=== PATIENT | female | born 1950 | race Caucasian/White ===

== ENCOUNTER → 2017-04-06 | Outpatient (CLI) | payer OTHER ==
[~2017-04-06] MED LIST: ASPI325T39 PO; CHOL1000 PO; METO50TA7 PO; MULT-506 PO; SULF500T36 PO
--- NOTE | 2017-04-06 15:37 | MAMMOGRAPHY REPORT ---
BILATERAL DIGITAL SCREENING MAMMOGRAM WITH CAD: 04/06/2017 CLINICAL HISTORY: Routine screening. Patient has no complaints. TECHNIQUE: Current study was also evaluated with a Computer Aided Detection (CAD) system. Bilateral CC and MLO views were obtained. COMPARISON: Comparison is made to exams dated: 03/30/2015 mammogram, 04/04/2016 mammogram, 4 mammogram, 03/18/2013 mammogram, 03/15/2012 mammogram, and 03/14/2011 mammogram - [facility]. BREAST COMPOSITION: The tissue of both breasts is heterogeneously dense, which may obscure small mas ses. FINDINGS: No suspicious masses, calcifications, or areas of architectural distortion are noted in ei ther breast. There has been no significant interval change compared to prior exams. Bilateral benign -appearing calcifications are not significantly changed. A biopsy marker clip is again seen within t he right upper outer quadrant. IMPRESSION: ACR BI-RADS CATEGORY 2: BENIGN There is no mammographic evidence of malignancy. A 1 year screening mammogram is recommended. The pa tient will receive written notification of the results. Approximately 10% of breast cancers are not detected with mammography. A negative mammographic report should not delay biopsy if a clinically suggestive mass is present. Maricel Pagan M.D. /:04/06/2017 07:38:57 Electronics Tech: Catrina SCHAEFFER(Joshua)(M), [facility] letter sent: Normal 1/2 BI-RADS Code: ACR BI-RADS Category 2: Benign
== END | disposition home or self-care (01) ==
LOC: C.MAMM 07:12
PROVIDERS: ATTEND Obstetrics & Gynecology
DX: Z12.31 Encounter for screening mammogram for malignant neoplasm of breast (principal)

== ENCOUNTER 2017-05-07 08:54 | Inpatient (IN) | payer OTHER ==
[~2017-05-07] VITALS: Ht 165.1 cm; Wt 70.5 kg
[2017-05-07] VITALS (8 sets, daily range): BP systolic 117–145; BP diastolic 70–102; PULSE 79–93; TEMP 37–37.3; O2SAT 97–100; Ht 165.1 cm; Wt 70.5 kg
[~2017-05-07 08:54] MED LIST changes: +CEFAZOLIN SOD 2000MG/10 ML IV PUSH IV SCH
[2017-05-07] MEDS ORDERED: ONDANSETRON INJ 2 MG/ML 2 ML VIAL IV STA (09:42)
[2017-05-07] MEDS ORDERED: SODIUM CHLORIDE 0.9% 500ML 500 ML IV STA (09:42)
[2017-05-07 09:44] LABS: BASO % 0.1 %; BASO ABS # 0.01 K/uL (0-0.2); COMPLETE YES; EOS % 0.1 %; HEMATOCRIT 34.1 % (37-47); IG% 0.4 %; LYMPH % 3.7 %; MEAN CELL VOLUME 83.8 fL (80-100); MEAN CORPUSCULAR HEMOGLOBIN 26.3 pg (25-34); MEAN CORPUSCULAR HGB CONC 31.4 g/dl (32-36); MEAN PLATELET VOLUME 8.5 fL (7.4-10.4); MONO % 2.4 %; NEUT % 93.3 %; PLATELET COUNT 473 K/uL (130-400); RED BLOOD COUNT 4.07 M/uL (4.2-5.4); WHITE BLOOD COUNT 13.66 K/uL (4.8-10.8)
[2017-05-07 10:09] LABS: ALT/SGPT 20 U/L (12-78); AST/SGOT 14 U/L (15-37); BLOOD UREA NITROGEN 13 mg/dl (7-18); BUN/CREATININE RATIO 14.3 (10-20); CALCIUM 8.7 mg/dl (8.5-10.1); CARBON DIOXIDE 27 mmol/L (21-32); CHLORIDE 99 mmol/L (98-107); CREATININE 0.92 mg/dl (0.60-1.20); GLUCOSE 166 mg/dl (70-99); POTASSIUM 3.8 mmol/L (3.5-5.1); SODIUM 131 mmol/L (136-145)
[2017-05-07 10:11] LABS: ALKALINE PHOSPHATASE 89 U/L (45-117)
[2017-05-07] MEDS ORDERED: AZAT50TA17 PO (10:42)
[2017-05-07] MEDS ORDERED: PRED10TA PO (10:42)
[2017-05-07] MEDS ORDERED: OPTIRAY 320 IV PRN (11:15)
[2017-05-07] MEDS ORDERED: PIPERACILLIN/TAZOBACTAM 4.5 GM/100ML D5W IV STA (11:16)
[2017-05-07] MEDS ORDERED: SODIUM CHLORIDE 0.9% 1000ML 1,000 ML IV STA (11:17)
--- NOTE | 2017-05-07 11:17 | DIAGNOSTIC IMAGING REPORT ---
CT ABD/PELVIS IV CONTRAST ONLY CLINICAL HISTORY: Diffuse abdominal pain COMPARISON STUDY: 07/13/2015 TECHNIQUE: Following the IV administration of 93 mL of Optiray-320, CT scan of the abdomen and pelvis was performed from the lung bases to the proximal femurs. Images are reviewed in the axial, sagittal, and coronal planes. IV contrast was administered without complication. A dose lowering technique was utilized adhering to the principles of ALARA. CT DOSE: 327.98 mGy.cm FINDINGS: Lower chest: There are bibasal atelectatic changes Liver: The contrast-enhanced liver is normal in size, contour, and attenuation. There is no intrahepatic biliary ductal dilatation. The hepatic veins and portal veins are patent. Gallbladder: Unremarkable. Spleen: Normal in size and attenuation. Pancreas: Unremarkable. Adrenal glands: Unremarkable. Kidneys: There is symmetric renal cortical enhancement. The kidneys are normal in size without hydronephrosis. Bowel: There is moderate to marked colonic wall thickening involving the descending colon and sigmoid. There is infiltration of the abdomen descending sigmoid junction. There are extraluminal gas bubbles present. There is an extraluminal gas and fluid collection consistent with abscess. There is evidence for free intraperitoneal air. There is minimal free fluid within the pelvis. There are additional areas of colonic wall thickening. There is also bowel wall thickening involving the terminal ileum.. There is mild small bowel dilatation with air-fluid levels, likely secondary to an ileus. There is no evidence of acute appendicitis. Peritoneum: There is minimal free fluid. There is free intraperitoneal air. Vasculature: The abdominal aorta is normal in course and caliber. Adenopathy: None. Pelvic viscera: There are small bilateral ovarian cysts/follicles. Skeletal structures: No destructive osseous lesions are seen. IMPRESSION: 1. CT evidence of a perforated viscus with free intraperitoneal air and small amounts of free intraperitoneal fluid 2. The site of perforation is likely in the region of the sigmoid, descending colonic junction. There is marked infiltration the pericolonic fat at this level, and there were small extraluminal gas and fluid collections consistent with pericolonic abscesses. These measure up to 2.5 cm in diameter. 3. Additional areas of colonic wall thickening as well as thickening of the terminal ileum. These could be secondary to the patient's reported Crohn's disease or be secondary to peritonitis. 4. Surgical consultation is recommended. 5. The scan findings were discussed with Dr. Fletcher in the emergency room Electronically signed by: Rick Alvarez M.D. 05/07/2017 11:16 AM Dictated Date/Time: 05/07/2017 11:05 AM
--- NOTE | 2017-05-07 12:40 | History and Physical ---
History & Physical Date & Time of Service: May 07, 2017 at 12:29 Chief Complaint: Stomach Pains Primary Care Physician: Stuart Plaza M.D. History of Present Illness Source: patient Mónica is a pleasant 66 year-old female who presented to the emergency room this morning with complaint of increasing abdominal pain. She has had moderate abdominal pain mostly in the left abdomen for the past 2-3 weeks and noticed the pain increasing in nature and radiating to the right side last evening. Mónica has history of Crohn's disease in which she is currently on Remicade. Treated by Dr. Mclain, GI with [facility]. She just had a colonoscopy about 2-3 weeks ago which was unremarkable other than her Crohn's disease. States she had the colonoscopy to evaluate if her Crohn's was improving while on the medication. Denies of any changes in her diet recently. Denies fever, chills, nausea, vomiting, diarrhea, constipation, or blood in stools. Labs showed leukocytosis of 13.66K CT of abdomen and pelvis with IV contrast showed perforated viscus with free intraperitoneal air and small amounts of free intraperitoneal fluid. Perforation most likely at the level of the sigmoid descending colon junction with some extraluminal gas and fluid suggesting abscess measuring up to 2.5 cm. She was tachycardic in the emergency department with heart rate in the 120's Past Medical/Surgical History Medical Problems: (1) Abdominal pain (2) Bloody diarrhea (3) Crohn's disease Past Surgical History: No past surgical history other than Endoscopy Social History Smoking Status: Former Smoker Drug Use: none Marital Status: Multi-Drug Resistant Organisms History of MDRO: No Allergies Coded Allergies: No Known Allergies (Unverified , 05/07/17) Home Medications Scheduled Aspirin (Aspirin Ec), 325 MG PO DAILY Azathioprine (Imuran), 50 MG PO DAILY Cholecalciferol (Vitamin D3), 1 TAB PO DAILY Metoprolol Succ (Toprol Xl) (Toprol-Xl), 50 MG PO DAILY Multivitamin (Multivitamin), 1 TAB PO DAILY Prednisone Tab (Prednisone), 10 MG PO DAILY Review of Systems Constitutional: No fever, No chills, No sweats Respiratory: No cough, No shortness of breath Cardiovascular: No chest pain Abdomen: + pain, No nausea, No vomiting, No diarrhea, No constipation Genitourinary - Female: No dysuria Integumentary: No rash Physical Exam Vital Signs Date Time Temp Pulse Resp B/P (MAP) Pulse Ox O2 Delivery O2 Flow Rate FiO2 05/07/17 11:26 115 17 140/81 95 Room Air 05/07/17 09:05 37.3 129 18 129/82 96 Room Air General Appearance: WD/WN, no apparent distress Head: normocephalic, atraumatic Eyes: sclerae normal ENT: hearing grossly normal Neck: trachea midline Respiratory/Chest: no respiratory distress, no accessory muscle use Abdomen/GI: soft, no organomegaly, no pulsatile mass, + tenderness (LLQ of abdomen on very mild palpation with rebound, and guarding), + distended (mild distention) Back: normal inspection Extremities/Musculoskelatal: normal inspection Neurologic/Psych: alert, normal mood/affect, oriented x 3 Skin: normal color, warm/dry, no rash Diagnostics Laboratory Results Results Past 24 Hours Test 05/07/17 09:35 Range/Units White Blood Count 13.66 4.8-10.8 K/uL Red Blood Count 4.07 4.2-5.4 M/uL Hemoglobin 10.7 12.0-16.0 g/dL Hematocrit 34.1 37-47 % Mean Corpuscular Volume 83.8 80-100 fL Mean Corpuscular Hemoglobin 26.3 25-34 pg Mean Corpuscular Hemoglobin Concent 31.4 32-36 g/dl Platelet Count 473 130-400 K/uL Mean Platelet Volume 8.5 7.4-10.4 fL Neutrophils (%) (Auto) 93.3 % Lymphocytes (%) (Auto) 3.7 % Monocytes (%) (Auto) 2.4 % Eosinophils (%) (Auto) 0.1 % Basophils (%) (Auto) 0.1 % Neutrophils # (Auto) 12.76 1.4-6.5 K/uL Lymphocytes # (Auto) 0.50 1.2-3.4 K/uL Monocytes # (Auto) 0.33 0.11-0.59 K/uL Eosinophils # (Auto) 0.01 0-0.5 K/uL Basophils # (Auto) 0.01 0-0.2 K/uL RDW Standard Deviation 44.6 36.4-46.3 fL RDW Coefficient of Variation 14.5 11.5-14.5 % Immature Granulocyte % (Auto) 0.4 % Immature Granulocyte # (Auto) 0.05 0.00-0.02 K/uL Sodium Level 131 136-145 mmol/L Potassium Level 3.8 3.5-5.1 mmol/L Chloride Level 99 98-107 mmol/L Carbon Dioxide Level 27 21-32 mmol/L Anion Gap 5.0 3-11 mmol/L Blood Urea Nitrogen 13 7-18 mg/dl Creatinine 0.92 0.60-1.20 mg/dl Estimated GFR () 74.2 Estimated GFR (Non- 64.0 BUN/Creatinine Ratio 14.3 10-20 Random Glucose 166 70-99 mg/dl Calcium Level 8.7 8.5-10.1 mg/dl Total Bilirubin 0.7 0.2-1 mg/dl Direct Bilirubin 0.2 0-0.2 mg/dl Aspartate Amino Transf (AST/SGOT) 14 15-37 U/L Alanine Aminotransferase (ALT/SGPT) 20 12-78 U/L Alkaline Phosphatase 89 45-117 U/L Total Protein 7.3 6.4-8.2 gm/dl Albumin 2.3 3.4-5.0 gm/dl Lipase 100 73-393 U/L Diagnostic Radiology CT ABD/PELVIS IV CONTRAST ONLY CLINICAL HISTORY: Diffuse abdominal pain COMPARISON STUDY: 07/13/2015 TECHNIQUE: Following the IV administration of 93 mL of Optiray-320, CT scan of the abdomen and pelvis was performed from the lung bases to the proximal femurs. Images are reviewed in the axial, sagittal, and coronal planes. IV contrast was administered without complication. A dose lowering technique was utilized adhering to the principles of ALARA. CT DOSE: 327.98 mGy.cm FINDINGS: Lower chest: There are bibasal atelectatic changes Liver: The contrast-enhanced liver is normal in size, contour, and attenuation. There is no intrahepatic biliary ductal dilatation. The hepatic veins and portal veins are patent. Gallbladder: Unremarkable. Spleen: Normal in size and attenuation. Pancreas: Unremarkable. Adrenal glands: Unremarkable. Kidneys: There is symmetric renal cortical enhancement. The kidneys are normal in size without hydronephrosis. Bowel: There is moderate to marked colonic wall thickening involving the descending colon and sigmoid. There is infiltration of the abdomen descending sigmoid junction. There are extraluminal gas bubbles present. There is an extraluminal gas and fluid collection consistent with abscess. There is evidence for free intraperitoneal air. There is minimal free fluid within the pelvis. There are additional areas of colonic wall thickening. There is also bowel wall thickening involving the terminal ileum.. There is mild small bowel dilatation with air-fluid levels, likely secondary to an ileus. There is no evidence of acute appendicitis. Peritoneum: There is minimal free fluid. There is free intraperitoneal air. Vasculature: The abdominal aorta is normal in course and caliber. Adenopathy: None. Pelvic viscera: There are small bilateral ovarian cysts/follicles. Skeletal structures: No destructive osseous lesions are seen. IMPRESSION: 1. CT evidence of a perforated viscus with free intraperitoneal air and small amounts of free intraperitoneal fluid 2. The site of perforation is likely in the region of the sigmoid, descending colonic junction. There is marked infiltration the pericolonic fat at this level, and there were small extraluminal gas and fluid collections consistent with pericolonic abscesses. These measure up to 2.5 cm in diameter. 3. Additional areas of colonic wall thickening as well as thickening of the terminal ileum. These could be secondary to the patient's reported Crohn's disease or be secondary to peritonitis. 4. Surgical consultation is recommended. 5. The scan findings were discussed with Dr. Fletcher in the emergency room Impression Assessment and Plan 66 year-old female who presented to emergency department with increasing LLQ abdominal pain for the past 2-3 weeks and now radiation to the right abdomen. History of Crohn's disease on Remicade, treated by Dr[facility] Mclain ([facility] Last colonoscopy was about 3 weeks ago, no issues per patient. CT scan showing perforated viscus with pneumoperitoneum and extraluminal air and fluid concerning for pericolonic abscesses. Elevated leukocytosis of 13.66K and Tachycardic. Plan: Plan to take patient to operating room for exploratory laparotomy, possible bowel resection, possible ostomy. Patient and informed of procedure and risks including bleeding, infection, injury to surrounding organs/tissues, multiorgan failure, DVT, AL, Stroke, or even . Patient understood and informed consent obtained She will be admitted to medical/surgical floor postoperatively Continue IV fluids and IV antibiotics Continue pain management as needed Dr. Humphreys has seen and examined patient, agrees with above.
[2017-05-07] MEDS ORDERED: METOPROLOL TARTRATE 1 MG/ML VIAL ONE ×2 (13:43→17:03)
[2017-05-07] MEDS ORDERED: FENTANYL CITRATE INJ 50 MCG/1 ML 2 ML VIAL ONE ×4 (13:43→15:04)
[2017-05-07] MEDS ORDERED: LIDOCAINE HCL 1% 20 ML VIAL ONE (14:02)
[2017-05-07] MEDS ORDERED: BUPIVACAINE 0.5 % 5 MG/1 ML MPF 30ML VIAL ONE (14:02)
[2017-05-07] MEDS ORDERED: BACITRACIN OINT 15 GM TUBE ONE (14:02)
[2017-05-07] MEDS ORDERED: SODIUM CHLORIDE 0.9% 1000ML 1,000 ML IV SCH (14:19)
[2017-05-07] MEDS ORDERED: MIDAZOLAM HCL 1 MG/ML 2ML VIAL ONE (14:22)
--- NOTE | 2017-05-07 14:27 | History & Physical Bridge Note ---
H&P Re-Evaluation Bridge Note: I have examined the patient, reviewed the History & Physical and in the interval since the performance of the History & Physical I have noted the following changes of clinical significance: No changes noted
[2017-05-07] MEDS ORDERED: ONDANSETRON INJ 2 MG/ML 2 ML VIAL IV PRN ×3 (14:30→17:30)
[2017-05-07] MEDS ORDERED: EpHEDrine SULFATE INJ 50 MG/ML AMP IV PRN (14:30)
[2017-05-07] MEDS ORDERED: MoRPHine SULFATE 4 MG/ML 1 ML CARP\\VIAL IV PRN ×2 (14:30→17:30)
[2017-05-07] MEDS ORDERED: FENTANYL CITRATE INJ 50 MCG/1 ML 2 ML VIAL IV PRN (14:30)
[2017-05-07] MEDS ORDERED: ATROPINE SULFATE 0.1 MG/ML 5ML SYR IV PRN (14:30)
[2017-05-07] MEDS ORDERED: MoRPHine SULFATE 2 MG/ML CARP IV PRN ×2 (14:30)
[2017-05-07] MEDS ORDERED: PROMETHAZINE HCL INJ 6.25 MG in SODIUM CHLORIDE 0.9% 50ML 50 ML IV PRN (14:30)
[2017-05-07] MEDS ORDERED: LIDOCAINE HCL 2% 2 ML VIAL (20MG/ML) ONE (14:52)
[2017-05-07] MEDS ORDERED: PROPOFOL IV EMULSION 10 MG/ML 20 ML VIAL IV ONE (14:52)
[2017-05-07] MEDS ORDERED: ONDANSETRON INJ 2 MG/ML 2 ML VIAL ONE (14:53)
[2017-05-07] MEDS ORDERED: DEXAMETHASONE SOD INJ 4 MG/ML VIAL ONE (14:53)
[2017-05-07] MEDS ORDERED: HYDROmorphone INJ 2 MG/ML SYR/VIAL ONE (14:56)
--- NOTE | 2017-05-07 15:36 | EMERGENCY ROOM VISIT NOTE ---
History Report prepared by Francisca: George Hall Under the Supervision of: Dr. Junior Fletcher D.O. First contact with patient: 09:17 Chief Complaint: ABDOMINAL PAIN Stated Complaint: STOMACH PAINS Nursing Triage Summary: Generalized abdominal pain x2 weeks. Denies N/V. Denies urinary symptoms. Pt reports hx of chrons. Pt incontinent while in triage, ran to bathroom- Per pts : She had colonoscopy 2 weeks ago, was started on prednisone and remicaide infusions, no improvement. History of Present Illness The patient is a 66 year old female who presents to the Emergency Room with complaints of constant left sided abdominal pain beginning three weeks ago. She states that her pain began moving into her right abdomen last night. She describes her pain as a feeling of "soreness". The patient denies any modifying factors. She denies any recent changes to her diet. She has a history of Crohn' s Disease, and states that it has been giving her troubles recently. The patient denies any fevers, cough, runny nose, rashes, SOB, or urinary symptoms. She had a colonoscopy two weeks ago which was normal. Source of History: patient Onset: three weeks ago Position: abdomen (left side) Quality: other ("soreness") Timing: constant Modifying Factors (Worsening): other (none) Modifying Factors (Relieving): other (none) Associated Symptoms: No cough, No SOB, No rash Note: The patient denies runny nose. Review of Systems See HPI for pertinent positives & negatives. A total of 10 systems reviewed and were otherwise negative. Past Medical & Surgical Medical Problems: (1) Abdominal pain (2) Bloody diarrhea (3) Crohns disease (4) Perforated sigmoid colon Family History No pertinent family history stated. Social History Smoking Status: Former Smoker Drug Use: none Marital Status: Housing Status: lives with family Current/Historical Medications Scheduled Aspirin (Aspirin Ec), 325 MG PO DAILY Azathioprine (Imuran), 50 MG PO DAILY Cholecalciferol (Vitamin D3), 1 TAB PO DAILY Metoprolol Succ (Toprol Xl) (Toprol-Xl), 50 MG PO DAILY Multivitamin (Multivitamin), 1 TAB PO DAILY Prednisone Tab (Prednisone), 10 MG PO DAILY Allergies Coded Allergies: No Known Allergies (Unverified , 05/07/17) Physical Exam Vital Signs Date Time Temp Pulse Resp B/P (MAP) Pulse Ox O2 Delivery O2 Flow Rate FiO2 05/07/17 12:39 116 16 130/81 95 05/07/17 12:05 116 16 130/81 95 Room Air 05/07/17 11:26 115 17 140/81 95 Room Air 05/07/17 09:05 37.3 129 18 129/82 96 Room Air Physical Exam GENERAL: Sitting up in bed, holding LLQ, alert, well appearing, well nourished, no distress, non-toxic EYE EXAM: normal conjunctiva. OROPHARYNX: no exudate, no erythema, lips, buccal mucosa, and tongue normal and mucous membranes are moist NECK: supple, no nuchal rigidity, no adenopathy, non-tender LUNGS: Clear to auscultation. Normal chest wall mechanics HEART: no murmurs, S1 normal and S2 normal ABDOMEN: abdomen soft, normo-active bowel sounds, no masses. Tenderness to palpation of the infraumbilical region on the left and right. BACK: Back is symmetrical on inspection and there is no deformity, no midline tenderness, no CVA tenderness. SKIN: no rashes and no bruising UPPER EXTREMITIES: upper extremities are grossly normal. LOWER EXTREMITIES: No pitting edema. NEURO EXAM: Normal sensorium, cranial nerves II-XII grossly intact, normal speech, no gross weakness of arms, no gross weakness of legs. Medical Decision & Procedures ER Provider Diagnostic Interpretation: CT:Per my review, radiologist interpretation. CT ABD/PELVIS IV CONTRAST ONLY FINDINGS: Lower chest: There are bibasal atelectatic changes Liver: The contrast-enhanced liver is normal in size, contour, and attenuation. There is no intrahepatic biliary ductal dilatation. The hepatic veins and portal veins are patent. Gallbladder: Unremarkable. Spleen: Normal in size and attenuation. Pancreas: Unremarkable. Adrenal glands: Unremarkable. Kidneys: There is symmetric renal cortical enhancement. The kidneys are normal in size without hydronephrosis. Bowel: There is moderate to marked colonic wall thickening involving the descending colon and sigmoid. There is infiltration of the abdomen descending sigmoid junction. There are extraluminal gas bubbles present. There is an extraluminal gas and fluid collection consistent with abscess. There is evidence for free intraperitoneal air. There is minimal free fluid within the pelvis. There are additional areas of colonic wall thickening. There is also bowel wall thickening involving the terminal ileum.. There is mild small bowel dilatation with air-fluid levels, likely secondary to an ileus. There is no evidence of acute appendicitis. Peritoneum: There is minimal free fluid. There is free intraperitoneal air. Vasculature: The abdominal aorta is normal in course and caliber. Adenopathy: None. Pelvic viscera: There are small bilateral ovarian cysts/follicles. Skeletal structures: No destructive osseous lesions are seen. IMPRESSION: 1. CT evidence of a perforated viscus with free intraperitoneal air and small amounts of free intraperitoneal fluid 2. The site of perforation is likely in the region of the sigmoid, descending colonic junction. There is marked infiltration the pericolonic fat at this level, and there were small extraluminal gas and fluid collections consistent with pericolonic abscesses. These measure up to 2.5 cm in diameter. 3. Additional areas of colonic wall thickening as well as thickening of the terminal ileum. These could be secondary to the patient's reported Crohn's disease or be secondary to peritonitis. 4. Surgical consultation is recommended. 5. The scan findings were discussed with Dr. Fletcher in the emergency room Electronically signed by: Rick Alvarez M.D. 05/07/2017 11:16 AM Laboratory Results 05/07/17 09:35 Red Blood Count 4.07, Mean Corpuscular Volume 83.8, Mean Corpuscular Hemoglobin 26.3, Mean Corpuscular Hemoglobin Concent 31.4, Mean Platelet Volume 8.5, Neutrophils (%) (Auto) 93.3, Lymphocytes (%) (Auto) 3.7, Monocytes (%) (Auto) 2.4, Eosinophils (%) (Auto) 0.1, Basophils (%) (Auto) 0.1, Neutrophils # (Auto) 12.76, Lymphocytes # (Auto) 0.50, Monocytes # (Auto) 0.33, Eosinophils # (Auto) 0.01, Basophils # (Auto) 0.01 05/07/17 09:35 Test 05/07/17 09:35 White Blood Count 13.66 K/uL (4.8-10.8) Red Blood Count 4.07 M/uL (4.2-5.4) Hemoglobin 10.7 g/dL (12.0-16.0) Hematocrit 34.1 % (37-47) Mean Corpuscular Volume 83.8 fL (80-100) Mean Corpuscular Hemoglobin 26.3 pg (25-34) Mean Corpuscular Hemoglobin Concent 31.4 g/dl (32-36) Platelet Count 473 K/uL (130-400) Mean Platelet Volume 8.5 fL (7.4-10.4) Neutrophils (%) (Auto) 93.3 % Lymphocytes (%) (Auto) 3.7 % Monocytes (%) (Auto) 2.4 % Eosinophils (%) (Auto) 0.1 % Basophils (%) (Auto) 0.1 % Neutrophils # (Auto) 12.76 K/uL (1.4-6.5) Lymphocytes # (Auto) 0.50 K/uL (1.2-3.4) Monocytes # (Auto) 0.33 K/uL (0.11-0.59) Eosinophils # (Auto) 0.01 K/uL (0-0.5) Basophils # (Auto) 0.01 K/uL (0-0.2) RDW Standard Deviation 44.6 fL (36.4-46.3) RDW Coefficient of Variation 14.5 % (11.5-14.5) Immature Granulocyte % (Auto) 0.4 % Immature Granulocyte # (Auto) 0.05 K/uL (0.00-0.02) Anion Gap 5.0 mmol/L (3-11) Estimated GFR () 74.2 Estimated GFR (Non- 64.0 BUN/Creatinine Ratio 14.3 (10-20) Calcium Level 8.7 mg/dl (8.5-10.1) Total Bilirubin 0.7 mg/dl (0.2-1) Direct Bilirubin 0.2 mg/dl (0-0.2) Aspartate Amino Transf (AST/SGOT) 14 U/L (15-37) Alanine Aminotransferase (ALT/SGPT) 20 U/L (12-78) Alkaline Phosphatase 89 U/L (45-117) Total Protein 7.3 gm/dl (6.4-8.2) Albumin 2.3 gm/dl (3.4-5.0) Lipase 100 U/L (73-393) Laboratory results per my review. Medications Administered Medications (Trade) Dose Ordered Sig/Rusty Route Start Time Stop Time Status Last Admin Dose Admin Sodium Chloride 500 ml @ 999 mls/hr Q31M STAT IV 05/07/17 09:42 05/07/17 10:12 DC 05/07/17 10:05 999 MLS/HR Piperacillin Sod/ Tazobactam Sod (Zosyn Iv) 4.5 gm NOW STAT IV 05/07/17 11:16 05/07/17 11:17 DC 05/07/17 11:24 4.5 GM Sodium Chloride 1,000 ml @ 999 mls/hr Q1H1M STAT IV 05/07/17 11:17 05/07/17 12:17 DC 05/07/17 11:24 999 MLS/HR ED Course ED COURSE: Vital signs were reviewed and showed tachycardia The patients medical record was reviewed The above diagnostic studies were performed and reviewed. ED treatments and interventions as stated above. 0937: The patient was evaluated in room A2. A complete history and physical examination was performed. 0942: Ordered Zofran Inj 4 mg IV, Sodium Chloride 500 ml @ 999 mls/hr IV. 1116: Ordered Zosyn 4.5 gm IV, Sodium Chloride 1000 ml @ 999 mls/hr IV. 1130: Upon reevaluation, the patient is resting comfortably. I discussed my findings with the patient and she understands and agrees with the treatment plan. Based on the patients age, coexisting illnesses, exam and lab findings the decision to treat as an inpatient was made. The patient remained stable while under my care. The patient will be evaluated for further management. Medical Decision Differential diagnoses includes but is not limited to gastritis, peptic ulcer disease, GERD, gallbladder disease, pancreatitis, small bowel obstruction, acute coronary syndrome, pericarditis, ischemic bowel, irritable bowel disease, irritable bowel syndrome, appendicitis, diverticulitis, malignancy, hernia, urinary tract infection, torsion, perforation, trauma, infectious. Patient is a 58-year-old female who presents to ER for 3 weeks of left-sided abdominal pain which is now radiating to the right. History Crohn's. Colonoscopy with in the past 3 weeks. On exam she does have diffuse tenderness. Leukocytosis of 14,000. BMP all LFTs, bilirubin lipase is normal. CT of the abdomen/pelvis shows perforation with small abscesses. Discussed with general surgery evaluated the patient at bedside. They took patient to the OR. Patient was given IV Zosyn. She was given IV narcotics. She did feel slightly better. Patient was updated at bedside. She is admitted and taken to the OR for perforated bowel. Medication Reconcilliation Current Medication List: was personally reviewed by me Blood Pressure Screening Patient's blood pressure: Normal blood pressure Blood pressure disposition: Did not require urgent referral Consults Time Called: 1115 Consulting Physician: Irena Bernard PA-C -General Surgery Returned Call: [phone] I reviewed the patient's case with Irena Bernard PA-C. General Surgery will evaluate the patient for further management. 1130: I spoke with Irena Bernard PA-C again. She recommends transfer to an acute care facility due to the patient's history of Crohn's disease. Additional Consults: Time Called: 1132 Consulted Physician: Dr. Humphreys -General Surgery Returned Call: [phone] Additional Comments: I reviewed the patient's case with Dr. Humphreys. He will take the patient to the OR. Impression Primary Impression: Perforated sigmoid colon Additional Impressions: Sepsis Crohns disease Scribe Attestation The scribe's documentation has been prepared under my direction and personally reviewed by me in its entirety. I confirm that the note above accurately reflects all work, treatment, procedures, and medical decision making performed by me. Departure Information Dispostion Being Evaluated By Surgeon Stuart Ga M.D. (PCP) Patient Instructions My [facility] Problem Qualifiers Additional Impressions: Sepsis Sepsis type: sepsis due to unspecified organism Qualified Codes: A41.9 - Sepsis, unspecified organism Crohns disease Gastrointestinal tract location: unspecified location Digestive disease complication type: unspecified complication Qualified Codes: K50.919 - Crohn' s disease, unspecified, with unspecified complications
[2017-05-07] MEDS ORDERED: VANCOMYCIN HCL 1000MG/20ML VIAL ONE (16:18)
[2017-05-07] MEDS ORDERED: METOCLOPRAMIDE HCL INJ 5 MG/ML 2 ML VIAL ONE (16:40)
[2017-05-07] MEDS ORDERED: NEOSTIGMINE METHYLSULFATE 5 MG/5 ML SYR ONE (16:40)
[2017-05-07] MEDS ORDERED: ESMOLOL HCL 10 MG/ML 10 ML VIAL ONE (17:03)
--- NOTE | 2017-05-07 17:28 | [facility] Post Operative Brief Note ---
Immediate Operative Summary Operative Date May 07, 2017. Pre-Operative Diagnosis History of Crohn's disease, acute diverticulitis with perforation, peritonitis Post-Operative Diagnosis same Procedure(s) Performed Exploratory Laparotomy, sigmoid resection and colostomy formation Surgeon Dr Humphreys System Operation Superintendent Surgeon(s) Irena Ramirez PA-C Estimated Blood Loss 100ml Findings acute sigmoid colon diverticulitis with perforation severe peritonitis Fluids (cc crystalloids) 2300ml Specimens A. Portion of sigmoid colon Drains HALLE X 1 Anesthesia general Complication(s) None Disposition Surgical ICU
[2017-05-07] MEDS ORDERED: ACETAMINOPHEN 325 MG TAB PO PRN (17:30)
--- NOTE | 2017-05-07 18:19 | Anesthesiology Progress Note ---
Anesthesia Post Op Note Date & Time May 07, 2017 at 18:19 Vital Signs Pain Intensity: 0 Vital Signs Past 12 Hours Date Time Temp Pulse Resp B/P (MAP) Pulse Ox O2 Delivery O2 Flow Rate FiO2 05/07/17 18:07 96 19 98 05/07/17 18:07 96 19 05/07/17 18:06 137/82 05/07/17 18:04 37.0 97 19 137/82 98 Nasal Cannula 2 05/07/17 18:02 95 20 100 05/07/17 18:02 86 20 05/07/17 18:01 141/78 05/07/17 17:57 91 20 100 05/07/17 17:57 90 20 05/07/17 17:56 140/79 05/07/17 17:52 91 16 100 05/07/17 17:52 87 16 05/07/17 17:51 88 19 135/78 100 05/07/17 17:51 88 19 05/07/17 17:46 90 16 141/78 100 05/07/17 17:46 90 16 05/07/17 17:41 90 17 05/07/17 17:41 91 17 137/80 100 05/07/17 17:36 92 17 139/80 100 05/07/17 17:36 92 17 05/07/17 17:31 98 20 05/07/17 17:31 97 20 149/98 100 05/07/17 17:26 93 20 142/82 100 05/07/17 17:26 93 20 05/07/17 17:24 141/81 05/07/17 17:22 156/85 05/07/17 17:21 37.0 104 16 156/85 98 Oxymask 10 05/07/17 17:21 102 18 05/07/17 17:21 102 18 95 05/07/17 12:39 116 16 130/81 95 05/07/17 12:05 116 16 130/81 95 Room Air 05/07/17 11:26 115 17 140/81 95 Room Air 05/07/17 09:05 37.3 129 18 129/82 96 Room Air Notes Mental Status: alert / awake / arousable, participated in evaluation Pt Amnestic to Procedure: Yes Nausea / Vomiting: adequately controlled Pain: adequately controlled Airway Patency, RR, SpO2: stable & adequate BP & HR: stable & adequate Hydration State: stable & adequate Anesthetic Complications: no major complications apparent
[2017-05-07] MEDS ORDERED: VANCOMYCIN CONSULT ACTIVE PRN (20:00)
[2017-05-07] MEDS: METRONIDAZOLE / NSS 500 MG in PREMIXED NSS 100 ML IV SCH (20:26)
[2017-05-07] MEDS: D5W AND 1/2NSS + 20MEQ KCL 1,000 ML IV SCH (20:26)
[2017-05-07] MEDS: CIPROFLOXACIN / D5W 400 MG in PREMIXED IN D5W 200 ML IV SCH (20:26)
[2017-05-07] MEDS: HYDROmorphone INJ 1 MG/ML SYR IV PRN (20:31)
[2017-05-07 21:01] LABS: PREG INTERNAL NEGATIVE QC NEG CLEAR BACKGROUND; PREG INTERNAL POSITIVE QC POS CONTROL LINE
[2017-05-07 21:03] LABS: URINE APPEARANCE CLEAR (CLEAR); URINE BILIRUBIN NEG (NEG); URINE COLOR YELLOW; URINE NITRITE NEG (NEG); URINE PH 5.5 (4.5-7.5); URINE SPECIFIC GRAVITY 1.024 (1.000-1.030); UROBILINOGEN NEG (NEG); ZZUR CULT IF INDIC CLEAN CATCH NO
[2017-05-07 21:04] LABS: MANUAL MICROSCOPIC REQUIRED? NO; REVIEW REQ? NO
--- NOTE | 2017-05-07 21:17 | Critical Care Consultation ---
Critical Care Consultation Date of Consultation: May 07, 2017. Attending Physician: Erica Humphreys MD Reason for Consultation: Exploratory Laparotomy and sigmoid resection and colostomy formation s/p perforation History of Present Illness Mónica Bowling is a 66yo female with a PMHx of Crohn's dz with recent colonoscopy at which time she was started on Remicade and Prednisone without improvement of her abd pain per her . She states colonoscopy was normal. She follows with Dr. Mclain of [facility]. She came to the ED today complaining of generalized abd pain for the last 2-3 weeks. Pain was initially on the left but has been getting progressively worse and began radiating to the right last night. Pain is described as a "soreness". On admission today, pt underwent abd CT with "evidence of a perforated viscus with free intraperitoneal air and small amounts of free intraperitoneal fluid. The site of perforation is likely in the region of the sigmoid, descending colonic junction. There is marked infiltration the pericolonic fat at this level, and there were small extraluminal gas and fluid collections consistent with pericolonic abscesses." These measure up to 2.5 cm in diameter.Pt was taken to the OR by Dr. Erica Humphreys and underwent Exploratory Laparotomy and sigmoid resection and colostomy formation with 100cc of EBL. Pt received 2.3L of fluid and 1 HALLE drain was left in place. Pt denies fever, chills, dizziness, change of vision, trouble breathing, shortness of rbeath, cough, chest pain, or palpitations. Pt denies changes in bladder habits but does complain of persistent abd pain. Pt denies numbness, tingling, or burning. She denies N/V/D or black, bloody, or tarry stools. Past Medical/Surgical History Medical Problems: (1) Abdominal pain (2) acute sigmoid colon diverticulit with perforation (3) Bloody diarrhea (4) Crohns disease (5) Perforated sigmoid colon Social History Smoking Status: Never Smoker Drug Use: none Marital Status: Housing Status: lives with family Allergies Coded Allergies: No Known Allergies (Unverified , 05/07/17) Home Medications Scheduled Aspirin (Aspirin Ec), 325 MG PO DAILY Azathioprine (Imuran), 50 MG PO DAILY Cholecalciferol (Vitamin D3), 1 TAB PO DAILY Metoprolol Succ (Toprol Xl) (Toprol-Xl), 50 MG PO DAILY Multivitamin (Multivitamin), 1 TAB PO DAILY Prednisone Tab (Prednisone), 10 MG PO DAILY Current Inpatient Medications Current Inpatient Medications Medications (Trade) Dose Ordered Sig/Rusty Route Start Time Stop Time Status Last Admin Dose Admin Ioversol (Optiray 320) 111 ml UD PRN IV 05/07/17 11:15 05/11/17 11:14 Ondansetron HCl (Zofran Inj) 4 mg Q4H PRN IV 05/07/17 14:30 06/06/17 14:29 Potassium Chloride/Dextrose/ Sod Cl 1,000 ml @ 125 mls/hr Q8H IV 05/07/17 20:00 06/06/17 19:59 05/07/17 20:26 125 MLS/HR Metronidazole 500 mg/Prmx 100 ml @ 100 mls/hr Q8H IV 05/07/17 20:00 05/17/17 19:59 05/07/17 20:26 100 MLS/HR Acetaminophen (Tylenol Tab) 650 mg Q6H PRN PO 05/07/17 17:30 06/06/17 17:29 Hydromorphone HCl (Dilaudid Inj) 1 mg Q3H PRN IV 05/07/17 17:30 05/21/17 17:29 05/07/17 20:31 1 MG Morphine Sulfate (MoRPHine SULFATE INJ) 3 mg Q3HWA PRN IV 05/07/17 17:30 05/21/17 17:29 Ciprofloxacin/ Dextrose 400 mg/ Prmx 200 ml @ 100 mls/hr Q12H IV 05/07/17 20:00 05/17/17 19:59 05/07/17 20:26 100 MLS/HR Vancomycin HCl 1000 mg/Sodium Chloride 270 ml @ 125 mls/hr Q16H IV 05/08/17 00:00 05/18/17 00:00 Vancomycin HCl (Consult) 1 ea UD PRN N/A 05/07/17 20:00 06/06/17 19:59 Review of Systems 12 systems reviewed and negative other than previously mentioned in the HPI. Physical Exam Date Time Temp Pulse Resp B/P (MAP) Pulse Ox O2 Delivery O2 Flow Rate FiO2 05/07/17 19:21 37.0 87 18 145/95 99 Nasal Cannula 2.0 12/18/17 18:23 91 22 12/18/17 18:23 90 22 99 12/18/17 18:21 135/85 12/18/17 18:18 92 21 1218/17 18:18 92 21 99 12/18/17 18:16 131/82 12/18/17 18:13 93 19 12/18/17 18:13 92 19 99 1218/17 18:11 141/81 1218/17 18:08 93 19 99 1218/17 18:08 93 19 12/18/17 18:07 96 19 98 12/18/17 18:07 96 19 1218/17 18:06 137/82 1218/17 18:04 37.0 97 19 137/82 98 Nasal Cannula 2 18/17 18:02 95 20 100 12/18/17 18:02 86 20 1218/17 18:01 141/78 1218/17 17:57 91 20 100 1218/17 17:57 90 20 1218/17 17:56 140/79 1218/17 17:52 91 16 100 12/18/17 17:52 87 16 12/18/17 17:51 88 19 135/78 100 12/18/17 17:51 88 19 12/18/17 17:46 90 16 141/78 100 12/18/17 17:46 90 16 12/18/17 17:41 90 17 12/18/17 17:41 91 17 137/80 100 12/18/17 17:36 92 17 139/80 100 12/18/17 17:36 92 17 12/18/17 17:31 98 20 12/18/17 17:31 97 20 149/98 100 12/18/17 17:26 93 20 142/82 100 12/18/17 17:26 93 20 12/18/17 17:24 141/81 1218/17 17:22 156/85 1218/17 17:21 37.0 104 16 156/85 98 Oxymask 10 18/17 17:21 102 18 12/18/17 17:21 102 18 95 1218/17 12:39 116 16 130/81 95 12/18/17 12:05 116 16 130/81 95 Room Air 12/18/17 11:26 115 17 140/81 95 Room Air 05/07/17 09:05 37.3 129 18 129/82 96 Room Air Vital Signs - as noted Laboratory Data - as noted Physical Exam: General - NAD, Resting in bed with family at bedside post-operatively Eyes - PERRL, EOMI No icterus, gaze conjugate ENT - Mucosa moist, no lesions or candidiasis Neck - Supple, trachea midline, no masses or lymphadenopathy, no JVD or bruits Lungs - No paradoxical chest wall movement, clear to auscultation bilaterally, Intermittent dependent rales no wheezes or rhonchi Heart - Reg rate and rhythm, No murmur, rubs, clicks, or gallops appreciated Abdomen - No BS, no bruits noted, tympanic to percussion, soft, nontender, nondistended, no organomegaly Extremities - No edema, pedal pulses intact Neuro - A&OX4 Strength extremities equal and appropriate bilaterally Reflexes: Bicep, brachioradialis, patellar, and plantar normal and equal CN:PERRL, EOMI, no facial asymmetry, uvula/tongue midline Laboratory Results Last 24 Hours Test 05/07/17 00:00 05/07/17 09:35 Urine Color YELLOW Urine Appearance CLEAR Urine pH 5.5 Urine Specific [place] 1.024 Urine Protein NEG Urine Glucose (UA) NEG Urine Ketones NEG Urine Occult Blood 1+ Urine Nitrite NEG Urine Bilirubin NEG Urine Urobilinogen NEG Urine Leukocyte Esterase NEG Urine WBC (Auto) 1-5 /hpf Urine RBC (Auto) 0-4 /hpf Urine Hyaline Casts (Auto) 1-5 /lpf Urine Epithelial Cells (Auto) 5-10 /lpf Urine Bacteria (Auto) NEG Urine Test NEG White Blood Count 13.66 K/uL Red Blood Count 4.07 M/uL Hemoglobin 10.7 g/dL Hematocrit 34.1 % Mean Corpuscular Volume 83.8 fL Mean Corpuscular Hemoglobin 26.3 pg Mean Corpuscular Hemoglobin Concent 31.4 g/dl Platelet Count 473 K/uL Mean Platelet Volume 8.5 fL Neutrophils (%) (Auto) 93.3 % Lymphocytes (%) (Auto) 3.7 % Monocytes (%) (Auto) 2.4 % Eosinophils (%) (Auto) 0.1 % Basophils (%) (Auto) 0.1 % Neutrophils # (Auto) 12.76 K/uL Lymphocytes # (Auto) 0.50 K/uL Monocytes # (Auto) 0.33 K/uL Eosinophils # (Auto) 0.01 K/uL Basophils # (Auto) 0.01 K/uL RDW Standard Deviation 44.6 fL RDW Coefficient of Variation 14.5 % Immature Granulocyte % (Auto) 0.4 % Immature Granulocyte # (Auto) 0.05 K/uL Sodium Level 131 mmol/L Potassium Level 3.8 mmol/L Chloride Level 99 mmol/L Carbon Dioxide Level 27 mmol/L Anion Gap 5.0 mmol/L Blood Urea Nitrogen 13 mg/dl Creatinine 0.92 mg/dl Estimated GFR () 74.2 Estimated GFR (Non- 64.0 BUN/Creatinine Ratio 14.3 Random Glucose 166 mg/dl Calcium Level 8.7 mg/dl Total Bilirubin 0.7 mg/dl Direct Bilirubin 0.2 mg/dl Aspartate Amino Transf (AST/SGOT) 14 U/L Alanine Aminotransferase (ALT/SGPT) 20 U/L Alkaline Phosphatase 89 U/L Total Protein 7.3 gm/dl Albumin 2.3 gm/dl Lipase 100 U/L Diagnostic Results CT ABD/PELVIS IV CONTRAST ONLY FINDINGS: Lower chest: There are bibasal atelectatic changes Liver: The contrast-enhanced liver is normal in size, contour, and attenuation. There is no intrahepatic biliary ductal dilatation. The hepatic veins and portal veins are patent. Gallbladder: Unremarkable. Spleen: Normal in size and attenuation. Pancreas: Unremarkable. Adrenal glands: Unremarkable. Kidneys: There is symmetric renal cortical enhancement. The kidneys are normal in size without hydronephrosis. Bowel: There is moderate to marked colonic wall thickening involving the descending colon and sigmoid. There is infiltration of the abdomen descending sigmoid junction. There are extraluminal gas bubbles present. There is an extraluminal gas and fluid collection consistent with abscess. There is evidence for free intraperitoneal air. There is minimal free fluid within the pelvis. There are additional areas of colonic wall thickening. There is also bowel wall thickening involving the terminal ileum.. There is mild small bowel dilatation with air-fluid levels, likely secondary to an ileus. There is no evidence of acute appendicitis. Peritoneum: There is minimal free fluid. There is free intraperitoneal air. Vasculature: The abdominal aorta is normal in course and caliber. Adenopathy: None. Pelvic viscera: There are small bilateral ovarian cysts/follicles. Skeletal structures: No destructive osseous lesions are seen. IMPRESSION: 1. CT evidence of a perforated viscus with free intraperitoneal air and small amounts of free intraperitoneal fluid 2. The site of perforation is likely in the region of the sigmoid, descending colonic junction. There is marked infiltration the pericolonic fat at this level, and there were small extraluminal gas and fluid collections consistent with pericolonic abscesses. These measure up to 2.5 cm in diameter. 3. Additional areas of colonic wall thickening as well as thickening of the terminal ileum. These could be secondary to the patient's reported Crohn's disease or be secondary to peritonitis. 4. Surgical consultation is recommended. 5. The scan findings were discussed with Dr. Fletcher in the emergency room Electronically signed by: Rick Alvarez M.D. 05/07/2017 11:16 AM Assessment & Plan (1) Sepsis (2) Abdominal pain (3) Crohns disease (4) acute sigmoid colon diverticulit with perforation PLAN: GI/Nutrition: * POD # 0: Exploratory Laparotomy and sigmoid resection and colostomy formation * Dilaudid 1mg PRN Pain * Abx: Vanc, Metronidazole, Ciprofloxacin * NPO until approved by surgeon * Hold DMARDs currently Neuro: * Dilaudid for pain control when necessary Resp: * Supplemental oxygen as required * Adequate Saturations on 2L nasal cannula, wean as tolerated CV: * Monitor on telemetry * Resume home medications as post op setting allows * Metoprolol 50mg PO Daily * ASA 325 mg PO Daily Fluids/Renal: * Hypernatremia noted: NSS @ 100 d/c'd * Begin Normosol @ 100 * Monitor Electrolytes daily and replete per protocol * Cr 0.92; Daily PRP * + 2L ID: * POD # 0, Abx as noted above in GI * Monitor Fever Curve; Currently Afebrile * Peritoneal Fluid Culture pending Heme: * H&H: 10.7/34.1; plts: 473 * No gross bleeding noted, Endocrine: Accu-Checks per protocol, started insulin infusion for 2 blood sugars greater than 180 or one over 250 CCT: 37 Minutes; This time is exclusive of all separately billable procedures. Thank you for involving us in the care of this patient. Please refer to Dr. Polo Clark's addendum for further recommendations. I have personally evaluated and examined this patient. I agree with assessment and plan of Justo Andrews PA-C. Abx coverage for perforated viscous. Problem Qualifiers (1) Sepsis: Sepsis type: sepsis due to unspecified organism Qualified Codes: A41.9 - Sepsis, unspecified organism (2) Crohns disease: Gastrointestinal tract location: unspecified location Digestive disease complication type: unspecified complication Qualified Codes: K50.919 - Crohn' s disease, unspecified, with unspecified complications
--- NOTE | 2017-05-07 21:23 | OPERATIVE REPORT ---
DATE OF OPERATION: 05/07/2017 PREOPERATIVE DIAGNOSIS: Acute diverticulitis with sigmoid colon perforation, peritonitis. POSTOPERATIVE DIAGNOSIS: Same. OPERATION: Exploratory laparotomy, partial sigmoid colon resection, colostomy. SURGEON: Erica Humphreys M.D. ROSS LIFT OPERATOR: Irena Bernard PA-C ANESTHESIA: General. ESTIMATED BLOOD LOSS: About 100 mL URINE OUTPUT: 500 mL IV FLUIDS: 2300 mL. FINDINGS: Acute sigmoid diverticulitis with perforation and abscess, peritonitis. COMPLICATIONS: None. INDICATIONS FOR THE PROCEDURE: This is a 66-year-old female, who presented to the ED with acute abdominal pain and the patient had long a history of Crohn's disease. The patient had a CT scan showing acute sigmoid diverticulitis with perforation with abscess and once we reviewed the patient in the ER, we decided to take the patient to the OR to do exploratory laparotomy, possible bowel resection, colostomy. I did talk to the patient about the benefit and risk, alternate procedure. I indicated the risks may include, but not limited, such as bleeding, infection, sepsis, multiple organ failure, bowel obstruction, myocardial infarction, DVT, even . The patient understands and she signed the informed consent. I answered all questions, the patient agreed to proceed with procedure. DETAILS OF PROCEDURE: We brought the patient to the OR, put the patient in the supine position. The patient received SCDs on bilateral legs to prevent DVT and also, the patient received 2 grams Ancef IV for prophylactic antibiotic. The patient received general anesthesia without difficulty. The patient received a Cast[place]na catheter insertion and the patient's abdomen was prepped and draped in routine sterile fashion. After time out, I made a midline incision and opened the fascia and opened the peritoneum under direct vision. Then, we found the patient has general peritonitis. There was some free fluid in the abdominal cavity. We did send this peritoneal fluid for culture, and then we exposed the patient and found the patient had significant inflammation of the sigmoid colon and sigmoid colon perforation. Around the perforation, there was abscess formation and then, we mobilized the sigmoid colon and the ureter was identified to protect at all times. Then we used the RENETTA staple transection on the proximal sigmoid colon and used a TIA staple transection of the distal sigmoid colon near the rectum; rechecked and no active bleeding and we removed the specimen. Then, I mobilized the descending colon and decided to create a colostomy. Then, I made about a 3-cm incision on the left side of the abdomen through the rectal muscle layers, open fashion, and passed through to the descending colon and created a colostomy in routine fashion. I used 2-0 Vicryl, closed the fascial layer to the colon and used 3-0 Vicryl to fix the colon to the skin. Then, we put the HALLE drainage in the abdominal cavity, pelvic area; then I closed, hemostasis obtained. Then, I also used 2 liters of normal saline to flush the abdominal cavity with 1 gram of vancomycin, hemostasis obtained. Then, I closed the abdominal incision, the fascial layer, by using #1 PDS continuous running and closed the subcutaneous layer by using 2-0 Vicryl, closed skin by using fang and once we created the colostomy, the blood circulation pinked nicely and then, we put a colostomy bag. We put the dressing on. The patient tolerated the procedure well. All the instrument, needle and sponge counts were correct x2 at the end of case. Specimen was sent to pathology. After procedure, I did talk to the patient and family member about the OR finding and procedure we did. They understand. I attest to the content of the Intraoperative Record and any orders documented therein. Any exceptions are noted below. LORA
--- NOTE | 2017-05-07 21:51 | Pharmacy Progress Note ---
Pharmacy Abx Initial Consult Date of Service May 07, 2017. Pharmacy Dosing Scope Date of Consult: 05/07/17 Consultation requested by: Dr. Humphreys Pharmacy is consulted to initiate Vancomycin IV dosing therapy, order appropriate labs and adjust drug dose/frequency. Subjective The patient is a 66 year old female admitted on May 07, 2017 at 17:37. Objective Height (Feet): 5 Height (Inches): 5.00 Weight (Kilograms): 67.000 Vital Signs (Past 12Hrs) Vital Signs Past 12 Hours Date Time Temp Pulse Resp B/P (MAP) Pulse Ox O2 Delivery O2 Flow Rate FiO2 05/07/17 21:01 93 15 124/88 (100) 99 Nasal Cannula 2.0 05/07/17 20:01 90 25 126/102 (110) 97 Nasal Cannula 2.0 05/07/17 20:00 100 Nasal Cannula 2.0 05/07/17 19:21 37.0 87 18 145/95 99 Nasal Cannula 2.0 05/07/17 19:01 37.3 90 20 145/95 (112) 97 Nasal Cannula 2.0 05/07/17 18:23 91 22 05/07/17 18:23 90 22 99 05/07/17 18:21 135/85 05/07/17 18:18 92 21 05/07/17 18:18 92 21 99 05/07/17 18:16 131/82 05/07/17 18:13 93 19 05/07/17 18:13 92 19 99 05/07/17 18:11 141/81 05/07/17 18:08 93 19 99 05/07/17 18:08 93 19 05/07/17 18:07 96 19 98 05/07/17 18:07 96 19 05/07/17 18:06 137/82 05/07/17 18:04 37.0 97 19 137/82 98 Nasal Cannula 2 05/07/17 18:02 95 20 100 05/07/17 18:02 86 20 05/07/17 18:01 141/78 05/07/17 17:57 91 20 100 05/07/17 17:57 90 20 05/07/17 17:56 140/79 05/07/17 17:52 91 16 100 05/07/17 17:52 87 16 05/07/17 17:51 88 19 135/78 100 05/07/17 17:51 88 19 05/07/17 17:46 90 16 141/78 100 05/07/17 17:46 90 16 05/07/17 17:41 90 17 05/07/17 17:41 91 17 137/80 100 05/07/17 17:36 92 17 139/80 100 05/07/17 17:36 92 17 05/07/17 17:31 98 20 05/07/17 17:31 97 20 149/98 100 05/07/17 17:26 93 20 142/82 100 05/07/17 17:26 93 20 05/07/17 17:24 141/81 05/07/17 17:22 156/85 05/07/17 17:21 37.0 104 16 156/85 98 Oxymask 10 05/07/17 17:21 102 18 05/07/17 17:21 102 18 95 05/07/17 12:39 116 16 130/81 95 05/07/17 12:05 116 16 130/81 95 Room Air 05/07/17 11:26 115 17 140/81 95 Room Air Lab Results (24Hrs) Laboratory Tests (24 Hours) Test 05/07/17 09:35 White Blood Count 13.66 K/uL (4.8-10.8) H Red Blood Count 4.07 M/uL (4.2-5.4) L Hemoglobin 10.7 g/dL (12.0-16.0) L Hematocrit 34.1 % (37-47) L Mean Corpuscular Volume 83.8 fL (80-100) Mean Corpuscular Hemoglobin 26.3 pg (25-34) Mean Corpuscular Hemoglobin Concent 31.4 g/dl (32-36) L Platelet Count 473 K/uL (130-400) H Mean Platelet Volume 8.5 fL (7.4-10.4) Neutrophils (%) (Auto) 93.3 % Lymphocytes (%) (Auto) 3.7 % Monocytes (%) (Auto) 2.4 % Eosinophils (%) (Auto) 0.1 % Basophils (%) (Auto) 0.1 % Neutrophils # (Auto) 12.76 K/uL (1.4-6.5) H Lymphocytes # (Auto) 0.50 K/uL (1.2-3.4) L Monocytes # (Auto) 0.33 K/uL (0.11-0.59) Eosinophils # (Auto) 0.01 K/uL (0-0.5) Basophils # (Auto) 0.01 K/uL (0-0.2) Micro Results Date/Time Source Procedure Growth Status 05/07/17 00:00 Nasal MRSA DNA Surveillance Screen Pending Received 05/07/17 15:00 Peritoneal Fluid Gram Stain Pending Received 05/07/17 15:00 Peritoneal Fluid Bacterial Culture Pending Received Assessment & Plan Assessment 66 year old female admitted to ICU, initiated on Vancomycin/Cipro/Flagyl IV for GI source - per Dr. Humphreys - all abx to continue. Peritoneal fluid pending. Plan Vancomycin IV * Loading dose: 1000 mg (15 mg/kg) - PREOP dose given in OR * Maintenance dose: 1000 mg IV (15 mg/kg) every 16 hours * Goal trough level for GI source: 15 to 20 mcg/mL * Trough level ordered for 05/09/17 @0730 Pharmacy will continue to follow and will adjust dose/frequency as necessary. Thank you.
[2017-05-07] MEDS: VANCOMYCIN INJ 1,000 MG in SODIUM CHLORIDE 0.9% 250ML 250 ML IV SCH (23:43)
[2017-05-08] VITALS (24 sets, daily range): BP systolic 103–164; BP diastolic 53–108; PULSE 77–101; TEMP 36.8–37.3; O2SAT 92–100
[2017-05-08] MEDS: HYDROmorphone INJ 1 MG/ML SYR IV PRN ×2 (00:58→06:04)
[2017-05-08] MEDS: D5W AND 1/2NSS + 20MEQ KCL 1,000 ML IV SCH ×2 (04:37→18:28)
[2017-05-08] MEDS: METRONIDAZOLE / NSS 500 MG in PREMIXED NSS 100 ML IV SCH ×3 (04:37→19:32)
[2017-05-08 05:11] LABS: BASO % 0.1 %; BASO ABS # 0.01 K/uL (0-0.2); EOS % 0.1 %; HEMATOCRIT 29.1 % (37-47); IG% 0.5 %; LYMPH % 1.7 %; LYMPH ABS # 0.26 K/uL (1.2-3.4); MEAN CELL VOLUME 84.6 fL (80-100); MEAN CORPUSCULAR HEMOGLOBIN 25.6 pg (25-34); MEAN CORPUSCULAR HGB CONC 30.2 g/dl (32-36); MEAN PLATELET VOLUME 8.5 fL (7.4-10.4); MONO % 2.4 %; NEUT % 95.2 %; PLATELET COUNT 391 K/uL (130-400); RED BLOOD COUNT 3.44 M/uL (4.2-5.4); WHITE BLOOD COUNT 14.89 K/uL (4.8-10.8)
[2017-05-08 05:33] LABS: BUN/CREATININE RATIO 14.2 (10-20); CALCIUM 7.8 mg/dl (8.5-10.1); CREATININE 0.72 mg/dl (0.60-1.20); MAGNESIUM 1.9 mg/dl (1.8-2.4)
[2017-05-08 05:40] LABS: COMPLETE YES
[2017-05-08 05:44] LABS: ALB/GLOB RATIO 0.4 (0.9-2); PHOSPHORUS 3.7 mg/dl (2.5-4.9)
[2017-05-08] MEDS: CIPROFLOXACIN / D5W 400 MG in PREMIXED IN D5W 200 ML IV SCH ×2 (07:32→19:32)
--- NOTE | 2017-05-08 07:34 | Anesthesiology Progress Note ---
Anesthesia Post Op Note Date & Time May 08, 2017 at 07:34 Vital Signs Pain Intensity: 6.0 Vital Signs Past 12 Hours Date Time Temp Pulse Resp B/P (MAP) Pulse Ox O2 Delivery O2 Flow Rate FiO2 05/08/17 07:00 36.9 80 18 106/66 (79) 98 Nasal Cannula 2.0 05/08/17 05:01 80 17 164/108 (126) 98 Nasal Cannula 2.0 05/08/17 04:01 36.9 82 15 163/106 (125) 97 05/08/17 04:00 100 Nasal Cannula 2.0 05/08/17 03:01 77 15 163/102 (122) 99 05/08/17 02:01 81 14 150/100 (117) 99 05/08/17 01:01 89 17 158/93 (114) 98 05/08/17 00:02 91 28 150/86 (107) 97 05/08/17 00:02 37.1 91 20 150/86 (107) 97 Nasal Cannula 2.0 05/07/17 23:59 100 Nasal Cannula 2.0 05/07/17 23:01 79 15 117/70 (86) 100 Nasal Cannula 2.0 05/07/17 22:01 85 16 129/83 (98) 100 Nasal Cannula 2.0 05/07/17 21:01 93 15 124/88 (100) 99 Nasal Cannula 2.0 05/07/17 20:01 90 25 126/102 (110) 97 Nasal Cannula 2.0 05/07/17 20:00 100 Nasal Cannula 2.0 Notes Mental Status: alert / awake / arousable, participated in evaluation Pt Amnestic to Procedure: Yes Nausea / Vomiting: adequately controlled Pain: adequately controlled Airway Patency, RR, SpO2: stable & adequate BP & HR: stable & adequate Hydration State: stable & adequate Anesthetic Complications: no major complications apparent
[2017-05-08] MEDS: HYDROCORTISONE IV 100 MG in SYRINGE 0 ML IV SCH ×2 (09:58→17:10)
[2017-05-08] MEDS: METOPROLOL TARTRATE 1 MG/ML VIAL IV. SCH ×3 (09:58→22:33)
[2017-05-08] MEDS ORDERED: NORMOSOL R 1,000 ML IV SCH (10:00)
[2017-05-08] MEDS ORDERED: ENOXAPARIN 40 MG/0.4 ML SYR SQ SCH (10:00)
--- NOTE | 2017-05-08 11:16 | Surgery Progress Note ---
Surgery Progress Note Date of Service May 08, 2017. Subjective Post OP Day: 1 (s/p exploratory lapartomy, sigmoidectomy, Bethae's procedure with end colostomy) + feeling well, + pain controlled, No chest pain, No SOB, No bowel movement, No flatus, No nausea, No vomiting Objective Vital Signs: Date Time Temp Pulse Resp B/P (MAP) Pulse Ox O2 Delivery O2 Flow Rate FiO2 05/08/17 10:00 85 18 148/83 (104) 98 Nasal Cannula 2.0 05/08/17 09:58 105 121/70 05/08/17 09:00 96 18 121/70 (87) 98 Nasal Cannula 2.0 05/08/17 08:00 98 Nasal Cannula 2.0 05/08/17 08:00 36.9 99 18 127/62 (83) 98 Nasal Cannula 2.0 05/08/17 07:00 36.9 80 18 106/66 (79) 98 Nasal Cannula 2.0 05/08/17 05:01 80 17 164/108 (126) 98 Nasal Cannula 2.0 05/08/17 04:01 36.9 82 15 163/106 (125) 97 05/08/17 04:00 100 Nasal Cannula 2.0 05/08/17 03:01 77 15 163/102 (122) 99 05/08/17 02:01 81 14 150/100 (117) 99 05/08/17 01:01 89 17 158/93 (114) 98 05/08/17 00:02 91 28 150/86 (107) 97 05/08/17 00:02 37.1 91 20 150/86 (107) 97 Nasal Cannula 2.0 05/07/17 23:59 100 Nasal Cannula 2.0 05/07/17 23:01 79 15 117/70 (86) 100 Nasal Cannula 2.0 05/07/17 22:01 85 16 129/83 (98) 100 Nasal Cannula 2.0 05/07/17 21:01 93 15 124/88 (100) 99 Nasal Cannula 2.0 05/07/17 20:01 90 25 126/102 (110) 97 Nasal Cannula 2.0 05/07/17 20:00 100 Nasal Cannula 2.0 05/07/17 19:21 37.0 87 18 145/95 99 Nasal Cannula 2.0 12/18/17 19:01 37.3 90 20 145/95 (112) 97 Nasal Cannula 2.0 12/18/17 18:23 91 22 12/18/17 18:23 90 22 99 12/18/17 18:21 135/85 12/18/17 18:18 92 21 12/18/17 18:18 92 21 99 12/18/17 18:16 131/82 12/18/17 18:13 93 19 12/18/17 18:13 92 19 99 1218/17 18:11 141/81 12/18/17 18:08 93 19 99 12/18/17 18:08 93 19 12/18/17 18:07 96 19 98 12/18/17 18:07 96 19 1218/17 18:06 137/82 1218/17 18:04 37.0 97 19 137/82 98 Nasal Cannula 2 18/17 18:02 95 20 100 12/18/17 18:02 86 20 1218/17 18:01 141/78 1218/17 17:57 91 20 100 12/18/17 17:57 90 20 12/18/17 17:56 140/79 12/18/17 17:52 91 16 100 12/18/17 17:52 87 16 12/18/17 17:51 88 19 135/78 100 12/18/17 17:51 88 19 12/18/17 17:46 90 16 141/78 100 12/18/17 17:46 90 16 12/18/17 17:41 90 17 12/18/17 17:41 91 17 137/80 100 12/18/17 17:36 92 17 139/80 100 12/18/17 17:36 92 17 12/18/17 17:31 98 20 12/18/17 17:31 97 20 149/98 100 12/18/17 17:26 93 20 142/82 100 12/18/17 17:26 93 20 12/18/17 17:24 141/81 12/18/17 17:22 156/85 12/18/17 17:21 37.0 104 16 156/85 98 Oxymask 10 12/18/17 17:21 102 18 12/18/17 17:21 102 18 95 12/18/17 12:39 116 16 130/81 95 12/18/17 12:05 116 16 130/81 95 Room Air 05/07/17 11:26 115 17 140/81 95 Room Air Physical Exam: HALLE drainage, nasogastric drainage (minimal clear, bilious output ) General Appearance: WD/WN, no apparent distress Head: normocephalic, atraumatic Neck: trachea midline Respiratory/Chest: lungs clear, normal breath sounds, no respiratory distress, no accessory muscle use Cardiovascular: no murmur, + tachycardia Abdomen: non distended, soft, no organomegaly, no pulsatile mass, + tenderness (appropriate post op in midline), + pertinent finding (ostomy in LLQ, ostomy pink, serosanguineous output in ostomy) Incision(s): clean, dry (dressing clean and dry except for inferior aspect, incision not inspected on POD # 1), intact Laboratory Results: Results Past 24 Hours Test 05/07/17 23:47 05/08/17 04:43 Range/Units Bedside Glucose 163 70-90 mg/dl White Blood Count 14.89 4.8-10.8 K/uL Red Blood Count 3.44 4.2-5.4 M/uL Hemoglobin 8.8 12.0-16.0 g/dL Hematocrit 29.1 37-47 % Mean Corpuscular Volume 84.6 80-100 fL Mean Corpuscular Hemoglobin 25.6 25-34 pg Mean Corpuscular Hemoglobin Concent 30.2 32-36 g/dl Platelet Count 391 130-400 K/uL Mean Platelet Volume 8.5 7.4-10.4 fL Neutrophils (%) (Auto) 95.2 % Lymphocytes (%) (Auto) 1.7 % Monocytes (%) (Auto) 2.4 % Eosinophils (%) (Auto) 0.1 % Basophils (%) (Auto) 0.1 % Neutrophils # (Auto) 14.18 1.4-6.5 K/uL Lymphocytes # (Auto) 0.26 1.2-3.4 K/uL Monocytes # (Auto) 0.36 0.11-0.59 K/uL Eosinophils # (Auto) 0.01 0-0.5 K/uL Basophils # (Auto) 0.01 0-0.2 K/uL RDW Standard Deviation 44.7 36.4-46.3 fL RDW Coefficient of Variation 14.4 11.5-14.5 % Immature Granulocyte % (Auto) 0.5 % Immature Granulocyte # (Auto) 0.07 0.00-0.02 K/uL Red Blood Cell Morphology Unremarkable Sodium Level 132 136-145 mmol/L Potassium Level 4.0 3.5-5.1 mmol/L Chloride Level 101 98-107 mmol/L Carbon Dioxide Level 30 21-32 mmol/L Anion Gap 1.0 3-11 mmol/L Blood Urea Nitrogen 10 7-18 mg/dl Creatinine 0.72 0.60-1.20 mg/dl Est Creatinine Clear Calc Drug Dose 67.3 ml/min Estimated GFR () 99.7 Estimated GFR (Non- 86.1 BUN/Creatinine Ratio 14.2 10-20 Random Glucose 172 70-99 mg/dl Calcium Level 7.8 8.5-10.1 mg/dl Phosphorus Level 3.7 2.5-4.9 mg/dl Magnesium Level 1.9 1.8-2.4 mg/dl Total Bilirubin 0.4 0.2-1 mg/dl Aspartate Amino Transf (AST/SGOT) 9 15-37 U/L Alanine Aminotransferase (ALT/SGPT) 13 12-78 U/L Alkaline Phosphatase 69 45-117 U/L Total Protein 5.4 6.4-8.2 gm/dl Albumin 1.5 3.4-5.0 gm/dl Globulin 3.9 2.5-4.0 gm/dl Albumin/Globulin Ratio 0.4 0.9-2 Microbiology Results /18/17 Gram Stain - Final, Resulted /18/17 Bacterial Culture, Resulted Pending Assessment & Plan POD # 1 s/p exploratory laparotomy , sigmoidectomy, Bethea's Procedure with end colostomy -vitals stable, afebrile overnight, intermittent tachycardia and hypertension - H&H 8.8/29.1 , asymptomatic, most likely dilutional - abdominal pain controlled - minimal NGT output -adequate urine output - slight increase in leukocytosis this morning, most likely post op Plan: Continue IV Dilaudid as needed for pain control Continue cardiac monitoring Continue to encourage incentive spirometry, keep O2 sats > 92% Continue Iv fluids at 100 mls/hr Continue IV antibiotics Continue NPO, NGT until return of bowel function Continue HALLE drain to bulb suction Continue Castorena until patient more ambulatory Continue SCDs encourage OOB to chair repeat am labs Hopefully will be able to transfer from ICU to med/surg floor tomorrow Dr. Humphreys has seen and examined patient, agrees with above
[2017-05-08 12:30] LABS: INR 1.2 (0.9-1.1); PROTHROMBIN TIME (PATIENT) 12.1 SECONDS (9.0-12.0)
[2017-05-08] MEDS: VANCOMYCIN INJ 1,000 MG in SODIUM CHLORIDE 0.9% 250ML 250 ML IV SCH (15:40)
[2017-05-08] MEDS: PANTOprazole INJ 40 MG in SYRINGE 0 ML IV SCH (19:32)
--- NOTE | 2017-05-08 21:13 | Critical Care Progress Note ---
Critical Care Progress Note Date of Service May 08, 2017. ICU Day ICU Day Number: [address] Clark Subjective No nausea no vomiting, pain controlled Objective Minimal NG output Small serosanguineous output in the ostomy Alert and oriented no distress Surgical dressing clean and dry Current SOFA Score SOFA Score Response (Comments) Value Platelets (x10) > 150 0 Bilirubin (mg/dL) < 1.2 0 Bonita Coma Score 15 0 Level of Hypotension No Hypotension 0 Creatinine (mg/dL) < 1.2 0 Total 0 Assessment & Plan (1) Sepsis (2) Abdominal pain (3) Crohns disease (4) acute sigmoid colon diverticulit with perforation Reason Critically Ill: Patient is a 66-year-old female with a significant past medical history of inflammatory bowel disease postop day 1 from a sigmoid colon resection with diverting ostomy secondary to a perforated viscus PLAN: Neuro: Pain controlled with Dilaudid Resp: Saturating well on 2 L nasal cannula CV: Hypertension * Patient takes home beta brenda currently nothing by mouth * 10 mg IV every 6 hours Fluids/Renal: GFR estimated 86 Hyponatremia * Convert to normal salt at 100 MLS per hour avoid hyponatremic fluids ID: Concern for intra-abdominal sepsis On broad-spectrum antibiotics (Cipro Flagyl vancomycin) Awaiting culture results * Would continue broad-spectrum coverage at this time GI/Nutrition: Nothing by mouth * History of inflammatory bowel disease Heme: Caprini Score 6, Lovenox 40 mg daily Endocrine: Chronic steroid therapy, prednisone 10 mg daily * IV supplementation until able to take baseline corticosteroids Hyperglycemia * Anticipate continued elevation of blood sugar, avoid dextrose-containing maintenance solutions Patient has remained hemodynamically stable. Normal anion gap stable for downgraded up out of ICU. Consults & Procedures Consultants: Critical care medicine Procedures: Exploratory laparotomy with colon resection 05/07/2017 Data Medications: Current Inpatient Medications Medications (Trade) Dose Ordered Sig/Rusty Route Start Time Stop Time Status Last Admin Dose Admin Ioversol (Optiray 320) 111 ml UD PRN IV 05/07/17 11:15 05/11/17 11:14 Ondansetron HCl (Zofran Inj) 4 mg Q4H PRN IV 05/07/17 14:30 06/06/17 14:29 Metronidazole 500 mg/Prmx 100 ml @ 100 mls/hr Q8H IV 05/07/17 20:00 05/17/17 19:59 12/19/17 19:32 100 MLS/HR Acetaminophen (Tylenol Tab) 650 mg Q6H PRN PO 05/07/17 17:30 06/06/17 17:29 Hydromorphone HCl (Dilaudid Inj) 1 mg Q3H PRN IV 05/07/17 17:30 05/21/17 17:29 05/08/17 06:04 1 MG Morphine Sulfate (MoRPHine SULFATE INJ) 3 mg Q3HWA PRN IV 05/07/17 17:30 05/21/17 17:29 Ciprofloxacin/ Dextrose 400 mg/ Prmx 200 ml @ 100 mls/hr Q12H IV 05/07/17 20:00 05/17/17 19:59 05/08/17 19:32 100 MLS/HR Vancomycin HCl 1000 mg/Sodium Chloride 270 ml @ 125 mls/hr Q16H IV 05/08/17 00:00 05/18/17 00:00 05/08/17 15:40 125 MLS/HR Vancomycin HCl (Consult) 1 ea UD PRN N/A 05/07/17 20:00 06/06/17 19:59 Metoprolol Tartrate (Lopressor Iv) 10 mg Q6H IV. 05/08/17 10:00 06/07/17 09:59 05/08/17 15:39 10 MG Potassium Chloride/Dextrose/ Sod Cl 1,000 ml @ 100 mls/hr Q10H IV 05/08/17 17:45 06/07/17 17:44 05/08/17 18:28 100 MLS/HR Pantoprazole Sodium 40 mg/ Syringe 10 ml @ 5 mls/min BID@0900,2100 IV 05/08/17 21:00 05/12/17 23:59 05/08/17 19:32 5 MLS/MIN I & O: 24-Hour Column 05/09/17 08:00 Intake Total 900 ml Output Total 1155 ml Balance -255 ml Vital Signs: Date Time Temp Pulse Resp B/P (MAP) Pulse Ox O2 Delivery O2 Flow Rate FiO2 05/08/17 19:01 37.3 82 16 109/57 (74) 95 Nasal Cannula 2.0 05/08/17 18:06 36.9 83 18 114/64 (81) 93 Nasal Cannula 2.0 05/08/17 17:00 36.9 90 18 105/53 (70) 98 Nasal Cannula 2.0 05/08/17 16:00 36.9 90 18 103/58 (73) 98 Nasal Cannula 2.0 05/08/17 16:00 97 Nasal Cannula 2.0 05/08/17 15:39 100 119/69 05/08/17 15:12 90 18 119/69 (86) 97 Nasal Cannula 2.0 05/08/17 14:00 36.9 98 18 112/63 (79) 97 Nasal Cannula 2.0 05/08/17 13:00 36.9 101 18 122/68 (86) 97 Nasal Cannula 2.0 05/08/17 12:00 97 Nasal Cannula 2.0 05/08/17 11:00 85 18 125/98 (107) 98 Nasal Cannula 2.0 05/08/17 10:00 85 18 148/83 (104) 98 Nasal Cannula 2.0 05/08/17 09:58 105 121/70 05/08/17 09:00 96 18 121/70 (87) 98 Nasal Cannula 2.0 05/08/17 08:00 98 Nasal Cannula 2.0 05/08/17 08:00 36.9 99 18 127/62 (83) 98 Nasal Cannula 2.0 05/08/17 07:00 36.9 80 18 106/66 (79) 98 Nasal Cannula 2.0 05/08/17 05:01 80 17 164/108 (126) 98 Nasal Cannula 2.0 05/08/17 04:01 36.9 82 15 163/106 (125) 97 05/08/17 04:00 100 Nasal Cannula 2.0 05/08/17 03:01 77 15 163/102 (122) 99 05/08/17 02:01 81 14 150/100 (117) 99 05/08/17 01:01 89 17 158/93 (114) 98 05/08/17 00:02 91 28 150/86 (107) 97 05/08/17 00:02 37.1 91 20 150/86 (107) 97 Nasal Cannula 2.0 05/07/17 23:59 100 Nasal Cannula 2.0 05/07/17 23:01 79 15 117/70 (86) 100 Nasal Cannula 2.0 05/07/17 22:01 85 16 129/83 (98) 100 Nasal Cannula 2.0 05/07/17 21:01 93 15 124/88 (100) 99 Nasal Cannula 2.0 Laboratory Results: Last 24 Hours Test 05/07/17 23:47 05/08/17 04:43 05/08/17 11:36 05/08/17 12:03 Bedside Glucose 163 mg/dl 118 mg/dl White Blood Count 14.89 K/uL Red Blood Count 3.44 M/uL Hemoglobin 8.8 g/dL Hematocrit 29.1 % Mean Corpuscular Volume 84.6 fL Mean Corpuscular Hemoglobin 25.6 pg Mean Corpuscular Hemoglobin Concent 30.2 g/dl Platelet Count 391 K/uL Mean Platelet Volume 8.5 fL Neutrophils (%) (Auto) 95.2 % Lymphocytes (%) (Auto) 1.7 % Monocytes (%) (Auto) 2.4 % Eosinophils (%) (Auto) 0.1 % Basophils (%) (Auto) 0.1 % Neutrophils # (Auto) 14.18 K/uL Lymphocytes # (Auto) 0.26 K/uL Monocytes # (Auto) 0.36 K/uL Eosinophils # (Auto) 0.01 K/uL Basophils # (Auto) 0.01 K/uL RDW Standard Deviation 44.7 fL RDW Coefficient of Variation 14.4 % Immature Granulocyte % (Auto) 0.5 % Immature Granulocyte # (Auto) 0.07 K/uL Red Blood Cell Morphology Unremarkable Sodium Level 132 mmol/L Potassium Level 4.0 mmol/L Chloride Level 101 mmol/L Carbon Dioxide Level 30 mmol/L Anion Gap 1.0 mmol/L Blood Urea Nitrogen 10 mg/dl Creatinine 0.72 mg/dl Est Creatinine Clear Calc Drug Dose 67.3 ml/min Estimated GFR () 99.7 Estimated GFR (Non- 86.1 BUN/Creatinine Ratio 14.2 Random Glucose 172 mg/dl Calcium Level 7.8 mg/dl Phosphorus Level 3.7 mg/dl Magnesium Level 1.9 mg/dl Total Bilirubin 0.4 mg/dl Aspartate Amino Transf (AST/SGOT) 9 U/L Alanine Aminotransferase (ALT/SGPT) 13 U/L Alkaline Phosphatase 69 U/L Total Protein 5.4 gm/dl Albumin 1.5 gm/dl Globulin 3.9 gm/dl Albumin/Globulin Ratio 0.4 Prothrombin Time 12.1 SECONDS Prothromb Time International Ratio 1.2 Test 05/08/17 17:14 Bedside Glucose 162 mg/dl Problem Qualifiers (1) Sepsis: Sepsis type: sepsis due to unspecified organism Qualified Codes: A41.9 - Sepsis, unspecified organism (2) Crohns disease: Gastrointestinal tract location: unspecified location Digestive disease complication type: unspecified complication Qualified Codes: K50.919 - Crohn' s disease, unspecified, with unspecified complications
[2017-05-09] VITALS (14 sets, daily range): BP systolic 113–134; BP diastolic 67–79; PULSE 86–116; TEMP 36.9–39.4; O2SAT 92–95
[2017-05-09] MEDS: METOPROLOL TARTRATE 1 MG/ML VIAL IV. SCH ×4 (04:14→22:26)
[2017-05-09] MEDS: D5W AND 1/2NSS + 20MEQ KCL 1,000 ML IV SCH ×3 (04:14→23:43)
[2017-05-09] MEDS: METRONIDAZOLE / NSS 500 MG in PREMIXED NSS 100 ML IV SCH ×3 (04:14→20:03)
[2017-05-09] MEDS: HYDROmorphone INJ 1 MG/ML SYR IV PRN (05:19)
[2017-05-09] MEDS ORDERED: VANCOMYCIN TROUGH SCH (07:30)
[2017-05-09] MEDS: CIPROFLOXACIN / D5W 400 MG in PREMIXED IN D5W 200 ML IV SCH ×2 (07:43→20:03)
[2017-05-09] MEDS: PANTOprazole INJ 40 MG in SYRINGE 0 ML IV SCH ×2 (07:43→20:32)
[2017-05-09 08:45] LABS: BASO % 0.1 %; BASO ABS # 0.01 K/uL (0-0.2); EOS % 0.3 %; HEMATOCRIT 27.9 % (37-47); IG% 0.3 %; LYMPH % 2.3 %; LYMPH ABS # 0.29 K/uL (1.2-3.4); MEAN CELL VOLUME 84.8 fL (80-100); MEAN CORPUSCULAR HEMOGLOBIN 26.1 pg (25-34); MEAN CORPUSCULAR HGB CONC 30.8 g/dl (32-36); MEAN PLATELET VOLUME 8.5 fL (7.4-10.4); MONO % 2.3 %; NEUT % 94.7 %; PLATELET COUNT 366 K/uL (130-400); RED BLOOD COUNT 3.29 M/uL (4.2-5.4); WHITE BLOOD COUNT 12.77 K/uL (4.8-10.8)
[2017-05-09 09:08] LABS: COMPLETE YES; DOHLE BODIES 1+; TOXIC GRANULATION 2+; VACUOLIZATION 1+
[2017-05-09] MEDS: VANCOMYCIN INJ 1,000 MG in SODIUM CHLORIDE 0.9% 250ML 250 ML IV SCH (09:10)
[2017-05-09 09:15] LABS: BUN/CREATININE RATIO 13.5 (10-20); CALCIUM 8.2 mg/dl (8.5-10.1); CREATININE 0.67 mg/dl (0.60-1.20); POTASSIUM 3.6 mmol/L (3.5-5.1)
[2017-05-09 09:17] LABS: ALB/GLOB RATIO 0.4 (0.9-2)
--- NOTE | 2017-05-09 10:31 | Pharmacy Progress Note ---
Pharmacy Abx Dose Short Note Date of Service May 09, 2017. Assessment & Plan Assessment 66 year old female receiving Vancomycin, Cipro and flagyl for treatment of GI perf s/p sigmoid resection + colostomy. * Day # 3 of antimicrobial therapy. * Peritoneal fluid culture from 05/07 grew E coli sensitive to rocephin, ancef, cipro * Renal function remains stable Plan Vancomycin * Trough level of 6.8 mcg/mL is subtherapeutic. Level is drawn prior to steady state however it was anticipated to be a bit higher. * Change dose to Vancomycin 1250mg (~18mg/kg) ever 12 hours. * Goal trough level for GI infection: 15-20 mcg/mL * Trough or random level ordered for: 05/11 @0930, prior to fourth maintenance dose. Pharmacy will continue to follow and will adjust dose/frequency as necessary. Thank you.
--- NOTE | 2017-05-09 11:34 | Medical Consult ---
Consultation Date of Consultation: May 09, 2017. Attending Physician: Erica Humphreys MD Reason for Consultation: s/p colonic perforation/abscess, history of Crohn's History of Present Illness 58-year-old female with history of Crohn's disease currently on Remicade therapy , who was admitted to the hospital with 1 week history of progressively worsening left-sided abdominal pain. She was found to have significant leukocytosis, and subsequent CT scan showed evidence of diverticulitis with perforation and abscess formation. She underwent emergent laparotomy with partial colectomy, and drainage of the abscess. So far, cultures growing E coli. Patient has been treated with vancomycin, ciprofloxacin, and and metronidazole and has shown some improvement. Still without bowel function, no significant temperature spikes. Still with left-sided abdominal pain, improved from admission. Past Medical/Surgical History Medical Problems: (1) Crohns disease Status: Chronic (2) Sepsis Status: Acute Medical Problems: (1) Abdominal pain (2) acute sigmoid colon diverticulit with perforation (3) Bloody diarrhea (4) Crohns disease (5) Perforated sigmoid colon Family History Noncontributory Social History Smoking Status: Never Smoker Drug Use: none Marital Status: Housing Status: lives with family Allergies Coded Allergies: No Known Allergies (Unverified , 05/07/17) Current Inpatient Medications Current Inpatient Medications Medications (Trade) Dose Ordered Sig/Rusty Route Start Time Stop Time Status Last Admin Dose Admin Ioversol (Optiray 320) 111 ml UD PRN IV 05/07/17 11:15 05/11/17 11:14 Ondansetron HCl (Zofran Inj) 4 mg Q4H PRN IV 05/07/17 14:30 06/06/17 14:29 Metronidazole 500 mg/Prmx 100 ml @ 100 mls/hr Q8H IV 05/07/17 20:00 05/17/17 19:59 05/09/17 04:14 100 MLS/HR Acetaminophen (Tylenol Tab) 650 mg Q6H PRN PO 05/07/17 17:30 06/06/17 17:29 Hydromorphone HCl (Dilaudid Inj) 1 mg Q3H PRN IV 05/07/17 17:30 05/21/17 17:29 05/09/17 05:19 1 MG Morphine Sulfate (MoRPHine SULFATE INJ) 3 mg Q3HWA PRN IV 05/07/17 17:30 05/21/17 17:29 Ciprofloxacin/ Dextrose 400 mg/ Prmx 200 ml @ 100 mls/hr Q12H IV 05/07/17 20:00 05/17/17 19:59 05/09/17 07:43 100 MLS/HR Vancomycin HCl (Consult) 1 ea UD PRN N/A 05/07/17 20:00 06/06/17 19:59 Metoprolol Tartrate (Lopressor Iv) 10 mg Q6H IV. 05/08/17 10:00 06/07/17 09:59 05/09/17 09:50 10 MG Potassium Chloride/Dextrose/ Sod Cl 1,000 ml @ 100 mls/hr Q10H IV 05/08/17 17:45 06/07/17 17:44 05/09/17 04:14 100 MLS/HR Pantoprazole Sodium 40 mg/ Syringe 10 ml @ 5 mls/min BID@0900,2100 IV 05/08/17 21:00 05/12/17 23:59 05/09/17 07:43 5 MLS/MIN Vancomycin HCl 1250 mg/Sodium Chloride 275 ml @ 125 mls/hr Q12H IV 05/09/17 22:00 05/18/17 00:00 Review of Systems Constitutional: No fever, No chills Eyes: No problem reported ENT: No problem reported Respiratory: No problem reported Cardiovascular: No problem reported Abdomen: + pain, No nausea, No vomiting Musculoskeletal: No problem reported Genitourinary - Female: No problem reported Neurologic: No problem reported Psychiatric: No problem reported Endocrine: No problem reported Hematologic / Lymphatic: No problem reported Integumentary: No problem reported Allergic / Immunologic: No problem reported Physical Exam Date Time Temp Pulse Resp B/P (MAP) Pulse Ox O2 Delivery O2 Flow Rate FiO2 05/09/17 09:50 85 136/73 05/09/17 08:00 Room Air 05/09/17 07:13 36.9 86 16 116/67 (83) 92 Room Air 05/09/17 04:14 Room Air 05/09/17 04:14 80 121/71 05/09/17 02:45 37.5 87 20 113/68 (83) 93 Room Air 05/08/17 23:30 Room Air 12/19/17 22:33 36.9 18 92 Room Air 05/08/17 22:33 90 111/67 05/08/17 20:55 36.8 85 16 114/72 (86) 93 Room Air 05/08/17 20:53 37.3 82 16 95 2.0 05/08/17 20:00 92 05/08/17 19:01 37.3 82 16 109/57 (74) 95 Nasal Cannula 2.0 05/08/17 18:06 36.9 83 18 114/64 (81) 93 Nasal Cannula 2.0 05/08/17 17:00 36.9 90 18 105/53 (70) 98 Nasal Cannula 2.0 05/08/17 16:00 36.9 90 18 103/58 (73) 98 Nasal Cannula 2.0 05/08/17 16:00 97 Nasal Cannula 2.0 05/08/17 15:39 100 119/69 05/08/17 15:12 90 18 119/69 (86) 97 Nasal Cannula 2.0 05/08/17 14:00 36.9 98 18 112/63 (79) 97 Nasal Cannula 2.0 05/08/17 13:00 36.9 101 18 122/68 (86) 97 Nasal Cannula 2.0 05/08/17 12:00 97 Nasal Cannula 2.0 General Appearance: WD/WN, no apparent distress Head: normocephalic, atraumatic Eyes: normal inspection, EOMI, sclerae normal ENT: normal ENT inspection, hearing grossly normal, pharynx normal Neck: supple, no adenopathy, thyroid normal, trachea midline Respiratory/Chest: chest non-tender, lungs clear, normal breath sounds, no respiratory distress Cardiovascular: regular rate, rhythm, no gallop, no murmur Abdomen/GI: soft, no organomegaly, + tenderness, + abnormal bowel sounds, + pertinent finding (LLQ ostomy) Back: normal inspection, no CVA tenderness Extremities/Musculoskelatal: normal inspection, no calf tenderness, non-tender Neurologic/Psych: alert, oriented x 3 Skin: normal color, warm/dry, no rash Lymphatic: no adenopathy Laboratory Results RUN DATE: 05/09/17 [facility] PAGE 1 RUN TIME: 0849 Specimen Inquiry PATIENT: YISEL HERNADEZ LOC: [facility] U # : [id number] AGE/SX: 66/F ROOM: [facility] REG : 05/07/[address]: Erica Humphreys MD : 1950 BED: 1 DIS : STATUS: ADM IN TLOC: SPEC #: [id number] GREER: 05/07/17 STATUS: RES REQ #: [id number] RECD: 05/07/[address]: Junior Fletcher DO SOURCE: PER FLD ENTR: 05/07/[address]: Stuart Plaza M.D. SPDESC: Erica Humphreys MD ORDERED: AER/DONALD CULTSMR Procedure Result Verified Site GRAM STAIN Final 05/08/17-741 RESULT MANY POLYS RARE GRAM POSITIVE COCCI OR AER/DONALD CULT Preliminary 05/09/17-0849 Organism 1 ESCHERICHIA COLI QUANITY RARE SENS SENSITIVITY TO FOLLOW +MIXWOUND PLUS LOW COUNTS OF PROBABLE INTESTINAL WANDY 1. ESCHERICHIA COLI Target Route Dose RX AB Cost M.I.C. IQ ------ ----- ------ -- ------ -------- - ------ TRIMET/SULFA R >2/38 AMPICILLIN R >16 AMPICILLIN/SUL R >16/8 CEFAZOLIN S <=8 CEFOXITIN S <=8 CEFOTAXIME S <=2 CEFTRIAXONE S <=1 CEFEPIME S <=4 CEFUROXIME S <=4 IMIPENEM S <=1 GENTAMICIN S <=4 TOBRAMYCIN S <=4 AMIKACIN S <=16 CIPROFLOXACIN S <=1 LEVOFLOXACIN S <=2 ERTAPENEM S <=1 PIP/TAZO S <=16 S = SENSITIVE I = INTERMEDIATE R = RESISTANT END OF REPORT Last 24 Hours Test 05/08/17 11:36 05/08/17 12:03 05/08/17 17:14 05/08/17 23:49 Bedside Glucose 118 mg/dl 162 mg/dl 189 mg/dl Prothrombin Time 12.1 SECONDS Prothromb Time International Ratio 1.2 Test 05/09/17 06:54 05/09/17 08:12 Bedside Glucose 138 mg/dl White Blood Count 12.77 K/uL Red Blood Count 3.29 M/uL Hemoglobin 8.6 g/dL Hematocrit 27.9 % Mean Corpuscular Volume 84.8 fL Mean Corpuscular Hemoglobin 26.1 pg Mean Corpuscular Hemoglobin Concent 30.8 g/dl Platelet Count 366 K/uL Mean Platelet Volume 8.5 fL Neutrophils (%) (Auto) 94.7 % Lymphocytes (%) (Auto) 2.3 % Monocytes (%) (Auto) 2.3 % Eosinophils (%) (Auto) 0.3 % Basophils (%) (Auto) 0.1 % Neutrophils # (Auto) 12.10 K/uL Lymphocytes # (Auto) 0.29 K/uL Monocytes # (Auto) 0.29 K/uL Eosinophils # (Auto) 0.04 K/uL Basophils # (Auto) 0.01 K/uL RDW Standard Deviation 45.4 fL RDW Coefficient of Variation 14.5 % Immature Granulocyte % (Auto) 0.3 % Immature Granulocyte # (Auto) 0.04 K/uL Toxic Granulation 2+ Toxic Vacuolation 1+ Dohle Bodies 1+ Sodium Level 138 mmol/L Potassium Level 3.6 mmol/L Chloride Level 101 mmol/L Carbon Dioxide Level 32 mmol/L Anion Gap 5.0 mmol/L Blood Urea Nitrogen 9 mg/dl Creatinine 0.67 mg/dl Est Creatinine Clear Calc Drug Dose 79.2 ml/min Estimated GFR () 104.7 Estimated GFR (Non- 90.3 BUN/Creatinine Ratio 13.5 Random Glucose 118 mg/dl Calcium Level 8.2 mg/dl Total Bilirubin 0.3 mg/dl Aspartate Amino Transf (AST/SGOT) 10 U/L Alanine Aminotransferase (ALT/SGPT) 11 U/L Alkaline Phosphatase 73 U/L Total Protein 5.8 gm/dl Albumin 1.6 gm/dl Globulin 4.2 gm/dl Albumin/Globulin Ratio 0.4 Vancomycin Level Trough 6.8 mcg/ml CT ABD/PELVIS IV CONTRAST ONLY CLINICAL HISTORY: Diffuse abdominal pain COMPARISON STUDY: 07/13/2015 TECHNIQUE: Following the IV administration of 93 mL of Optiray-320, CT scan of the abdomen and pelvis was performed from the lung bases to the proximal femurs. Images are reviewed in the axial, sagittal, and coronal planes. IV contrast was administered without complication. A dose lowering technique was utilized adhering to the principles of ALARA. CT DOSE: 327.98 mGy.cm FINDINGS: Lower chest: There are bibasal atelectatic changes Liver: The contrast-enhanced liver is normal in size, contour, and attenuation. There is no intrahepatic biliary ductal dilatation. The hepatic veins and portal veins are patent. Gallbladder: Unremarkable. Spleen: Normal in size and attenuation. Pancreas: Unremarkable. Adrenal glands: Unremarkable. Kidneys: There is symmetric renal cortical enhancement. The kidneys are normal in size without hydronephrosis. Bowel: There is moderate to marked colonic wall thickening involving the descending colon and sigmoid. There is infiltration of the abdomen descending sigmoid junction. There are extraluminal gas bubbles present. There is an extraluminal gas and fluid collection consistent with abscess. There is evidence for free intraperitoneal air. There is minimal free fluid within the pelvis. There are additional areas of colonic wall thickening. There is also bowel wall thickening involving the terminal ileum.. There is mild small bowel dilatation with air-fluid levels, likely secondary to an ileus. There is no evidence of acute appendicitis. Peritoneum: There is minimal free fluid. There is free intraperitoneal air. Vasculature: The abdominal aorta is normal in course and caliber. Adenopathy: None. Pelvic viscera: There are small bilateral ovarian cysts/follicles. Skeletal structures: No destructive osseous lesions are seen. IMPRESSION: 1. CT evidence of a perforated viscus with free intraperitoneal air and small amounts of free intraperitoneal fluid 2. The site of perforation is likely in the region of the sigmoid, descending colonic junction. There is marked infiltration the pericolonic fat at this level, and there were small extraluminal gas and fluid collections consistent with pericolonic abscesses. These measure up to 2.5 cm in diameter. 3. Additional areas of colonic wall thickening as well as thickening of the terminal ileum. These could be secondary to the patient's reported Crohn's disease or be secondary to peritonitis. 4. Surgical consultation is recommended. 5. The scan findings were discussed with Dr. Fletcher in the emergency room Electronically signed by: Rick Alvarez M.D. 05/07/2017 11:16 AM Dictated Date/Time: 05/07/2017 11:05 AM The status of this report is Signed. Draft = Not yet reviewe Assessment & Plan Perforated sigmoid diverticulitis with abscess with positive culture for E. coli. Patient can be continued on current therapy for now, but can transition to oral Rx with Ciprofloxacin and metronidazole once taking po. Likely 2-3 weeks of therapy depending on clinical improvement. Will follow.
--- NOTE | 2017-05-09 13:20 | Surgery Progress Note ---
Surgery Progress Note Date of Service May 09, 2017. Subjective Post OP Day: 2 (s/p ex lap, sigmoidectomy, bethea's with end colostomy) Thirsty would like something to drink abdominal Pain controlled no nausea or vomiting No output in ostomy yet sitting in bed on encounter Objective Vital Signs: Date Time Temp Pulse Resp B/P (MAP) Pulse Ox O2 Delivery O2 Flow Rate FiO2 05/09/17 12:48 38.4 107 20 127/77 (94) 94 Room Air 05/09/17 11:58 36.9 96 22 92 2.0 05/09/17 10:58 36.9 96 22 123/72 (89) 92 Room Air 05/09/17 09:50 85 136/73 05/09/17 08:00 Room Air 05/09/17 07:13 36.9 86 16 116/67 (83) 92 Room Air 05/09/17 04:14 Room Air 05/09/17 04:14 80 121/71 05/09/17 02:45 37.5 87 20 113/68 (83) 93 Room Air 05/08/17 23:30 Room Air 05/08/17 22:33 36.9 18 92 Room Air 05/08/17 22:33 90 111/67 05/08/17 20:55 36.8 85 16 114/72 (86) 93 Room Air 05/08/17 20:53 37.3 82 16 95 2.0 05/08/17 20:00 92 05/08/17 19:01 37.3 82 16 109/57 (74) 95 Nasal Cannula 2.0 05/08/17 18:06 36.9 83 18 114/64 (81) 93 Nasal Cannula 2.0 05/08/17 17:00 36.9 90 18 105/53 (70) 98 Nasal Cannula 2.0 05/08/17 16:00 36.9 90 18 103/58 (73) 98 Nasal Cannula 2.0 05/08/17 16:00 97 Nasal Cannula 2.0 05/08/17 15:39 100 119/69 05/08/17 15:12 90 18 119/69 (86) 97 Nasal Cannula 2.0 05/08/17 14:00 36.9 98 18 112/63 (79) 97 Nasal Cannula 2.0 Physical Exam: HALLE drainage (serous), nasogastric drainage (minimal bilious/ light brown output in canister), urine output (clear remi) General Appearance: WD/WN, no apparent distress Head: normocephalic, atraumatic Neck: trachea midline Respiratory/Chest: no respiratory distress, no accessory muscle use Abdomen: non distended, soft, + tenderness (appropriate post op at incision site and left lower abdomen), + pertinent finding (ostomy in left lower abdomen : pink with sweat in ostomy bag) Incision(s): clean, dry, intact, no erythema, no drainage, findings (fang intact) Laboratory Results: Results Past 24 Hours Test 05/08/17 17:14 05/08/17 23:49 05/09/17 06:54 05/09/17 08:12 Range/Units Bedside Glucose 162 189 138 70-90 mg/dl White Blood Count 12.77 4.8-10.8 K/uL Red Blood Count 3.29 4.2-5.4 M/uL Hemoglobin 8.6 12.0-16.0 g/dL Hematocrit 27.9 37-47 % Mean Corpuscular Volume 84.8 80-100 fL Mean Corpuscular Hemoglobin 26.1 25-34 pg Mean Corpuscular Hemoglobin Concent 30.8 32-36 g/dl Platelet Count 366 130-400 K/uL Mean Platelet Volume 8.5 7.4-10.4 fL Neutrophils (%) (Auto) 94.7 % Lymphocytes (%) (Auto) 2.3 % Monocytes (%) (Auto) 2.3 % Eosinophils (%) (Auto) 0.3 % Basophils (%) (Auto) 0.1 % Neutrophils # (Auto) 12.10 1.4-6.5 K/uL Lymphocytes # (Auto) 0.29 1.2-3.4 K/uL Monocytes # (Auto) 0.29 0.11-0.59 K/uL Eosinophils # (Auto) 0.04 0-0.5 K/uL Basophils # (Auto) 0.01 0-0.2 K/uL RDW Standard Deviation 45.4 36.4-46.3 fL RDW Coefficient of Variation 14.5 11.5-14.5 % Immature Granulocyte % (Auto) 0.3 % Immature Granulocyte # (Auto) 0.04 0.00-0.02 K/uL Toxic Granulation 2+ Toxic Vacuolation 1+ Dohle Bodies 1+ Sodium Level 138 136-145 mmol/L Potassium Level 3.6 3.5-5.1 mmol/L Chloride Level 101 98-107 mmol/L Carbon Dioxide Level 32 21-32 mmol/L Anion Gap 5.0 3-11 mmol/L Blood Urea Nitrogen 9 7-18 mg/dl Creatinine 0.67 0.60-1.20 mg/dl Est Creatinine Clear Calc Drug Dose 79.2 ml/min Estimated GFR () 104.7 Estimated GFR (Non- 90.3 BUN/Creatinine Ratio 13.5 10-20 Random Glucose 118 70-99 mg/dl Calcium Level 8.2 8.5-10.1 mg/dl Total Bilirubin 0.3 0.2-1 mg/dl Aspartate Amino Transf (AST/SGOT) 10 15-37 U/L Alanine Aminotransferase (ALT/SGPT) 11 12-78 U/L Alkaline Phosphatase 73 45-117 U/L Total Protein 5.8 6.4-8.2 gm/dl Albumin 1.6 3.4-5.0 gm/dl Globulin 4.2 2.5-4.0 gm/dl Albumin/Globulin Ratio 0.4 0.9-2 Vancomycin Level Trough 6.8 SEE COMMENT mcg/ml Test 05/09/ 11:27 Range/Units Bedside Glucose 104 70-90 mg/dl Assessment & Plan POD # 2 s/p exploratory laparotomy , sigmoidectomy, Bethea's Procedure with end colostomy - vitals stable, afebrile overnight, intermittent tachycardia - H&H 8.6/27.9 , asymptomatic, most likely dilutional - abdominal pain controlled - 675 mls NGT output yesterday in 24 hours, minimal this am - adequate urine output - slight decrease in leukocytosis this morning at 12.77K Plan: Continue IV Dilaudid as needed for pain control Continue to encourage incentive spirometry, keep O2 sats > 92% Continue Iv fluids at 100 mls/hr Continue IV antibiotics, appreciate ID input, will need to switch to oral Cipro/ Flagyl once taking PO, total course of 2-3 weeks GI Consultations for management of Crohn's disease Discontinued IV Hydrocortisone given high dose and worry of poor wound healing Continue NPO, NGT until return of bowel function Continue HALLE drain to bulb suction Discontinue Castorena catheter Continue SCDs, hold Lovenox given low H&H encourage OOB to chair repeat am labs Transfer to Med/surg floor Dr. Humphreys has seen and examined patient, agrees with above
--- NOTE | 2017-05-09 14:21 | Gastrointestinal Consultation ---
Gastrointestinal Consultation Date of Consultation: May 09, 2017 Attending Physician: Erica Humphreys Consulting Physician: Kendrick Acosta Reason for Consultation: Hx of colon resection, Crohn's disease History of Present Illness Patient is a 66 year old female w PMHx of Crohn's disease, HTN, who presented to ED on 05/07 for increasing L sided abd pain. Upon evaluation, found to have leukocytosis w WBC, + tachycardic, CT abd/pelvis showed perforated viscus w free intraperitoneal air and extraluminal gas, abscess. She was taken to OR by Dr. Humphreys and found to have perforated sigmoid diverticulitis s/p ex lap, sigmoidectomy, Dyana's procedure w end ostomy. ID service (Dr. Ford) following as well she is currently on Vancomycin, Cipro, Flagyl. She had been kept NPO, NGT w minimal outpt. She is noticing small amt of fluids/residue in ostomy bag w gas. In regards to her Crohn's disease, she is diagnosed 40 yrs ago. Hx of fistulizing (entero-enteric) and stricturing disease. Managed by Dr. Davis previously then Dr. Cecilia Ly, last office visit 12/2016. She's on Remicade since 06/2016 current dose 10mg/kg every 8 weeks. She is due for another infusion this Sunday. Also on Imuran 50mg daily, Sulfasalazine 1g TID. She reports having diarrhea since at least prior to her last colonoscopy and had also noticed 30+ lbs weight loss since last month due to poor appetite and diarrhea. Last colonoscopy 04/16/17, ileitis and active L sided disease, negative Cdiff and CMV Past Medical/Surgical History Medical Problems: (1) Crohns disease Status: Chronic (2) Sepsis Status: Acute Past Medical History: See HPI Past Surgical History: See above Social History Smoking Status: Never Smoker Drug Use: none Marital Status: Housing Status: lives with family Allergies Coded Allergies: No Known Allergies (Unverified , 05/07/17) Current Medications Home Meds and Scripts Medications Dose Route/Sig Max Daily Dose Days Date Category Imuran (Azathioprine) 50 Mg Tab 50 Mg PO DAILY 05/07/17 Reported Prednisone 10 Mg Tab 10 Mg PO DAILY 05/07/17 Reported Vitamin D3 (Cholecalciferol) 1,000 Unit Tab 1 Tab PO DAILY 12/14/14 Reported Multivitamin (Multivitamins) Tab 1 Tab PO DAILY 12/14/14 Reported Aspirin Ec (Aspirin) 325 Mg Tab 325 Mg PO DAILY 12/14/14 Reported Toprol-Xl (Metoprolol Succinate) 50 Mg Tabcr 50 Mg PO DAILY 12/14/14 Reported Review of Systems Constitutional: + chills, + weight loss, No fever Respiratory: No cough, No shortness of breath Cardiac: No chest pain Abdomen: + see HPI, + pain, + diarrhea, No nausea, No vomiting Skin: No rash, No itch Physical Exam Date Time Temp Pulse Resp B/P (MAP) Pulse Ox O2 Delivery O2 Flow Rate FiO2 05/09/17 12:48 38.4 107 20 127/77 (94) 94 Room Air 05/09/17 11:58 36.9 96 22 92 2.0 05/09/17 10:58 36.9 96 22 123/72 (89) 92 Room Air 05/09/17 09:50 85 136/73 05/09/17 08:00 Room Air 05/09/17 07:13 36.9 86 16 116/67 (83) 92 Room Air 05/09/17 04:14 Room Air 05/09/17 04:14 80 121/71 05/09/17 02:45 37.5 87 20 113/68 (83) 93 Room Air 05/08/17 23:30 Room Air 05/08/17 22:33 36.9 18 92 Room Air 05/08/17 22:33 90 111/67 05/08/17 20:55 36.8 85 16 114/72 (86) 93 Room Air 05/08/17 20:53 37.3 82 16 95 2.0 05/08/17 20:00 92 05/08/17 19:01 37.3 82 16 109/57 (74) 95 Nasal Cannula 2.0 05/08/17 18:06 36.9 83 18 114/64 (81) 93 Nasal Cannula 2.0 05/08/17 17:00 36.9 90 18 105/53 (70) 98 Nasal Cannula 2.0 05/08/17 16:00 36.9 90 18 103/58 (73) 98 Nasal Cannula 2.0 05/08/17 16:00 97 Nasal Cannula 2.0 05/08/17 15:39 100 119/69 05/08/17 15:12 90 18 119/69 (86) 97 Nasal Cannula 2.0 05/08/17 14:00 36.9 98 18 112/63 (79) 97 Nasal Cannula 2.0 General Appearance: WD/WN, no apparent distress Eyes: normal inspection, PERRL, EOMI ENT: + pertinent finding (NGT in place, on suction ) Neck: supple, no JVD, trachea midline Respiratory/Chest: normal breath sounds, no respiratory distress, no accessory muscle use Cardiovascular: regular rate, rhythm, no gallop, no murmur Abdomen: non tender (surgical area ), soft, + abnormal bowel sounds (hypoactive ), + pertinent finding (LUQ abd with ostomy, pink moist, small amt of blood in bag; midline incision covered w CDI dressing ) Extremities: normal inspection, no pedal edema, no calf tenderness Neurologic/Psych: alert, normal mood/affect, oriented x 3 Skin: normal color, no jaundice, no rash Laboratory Results Last 24 Hours Test 05/08/17 17:14 05/08/17 23:49 05/09/17 06:54 05/09/17 08:12 Bedside Glucose 162 mg/dl 189 mg/dl 138 mg/dl White Blood Count 12.77 K/uL Red Blood Count 3.29 M/uL Hemoglobin 8.6 g/dL Hematocrit 27.9 % Mean Corpuscular Volume 84.8 fL Mean Corpuscular Hemoglobin 26.1 pg Mean Corpuscular Hemoglobin Concent 30.8 g/dl Platelet Count 366 K/uL Mean Platelet Volume 8.5 fL Neutrophils (%) (Auto) 94.7 % Lymphocytes (%) (Auto) 2.3 % Monocytes (%) (Auto) 2.3 % Eosinophils (%) (Auto) 0.3 % Basophils (%) (Auto) 0.1 % Neutrophils # (Auto) 12.10 K/uL Lymphocytes # (Auto) 0.29 K/uL Monocytes # (Auto) 0.29 K/uL Eosinophils # (Auto) 0.04 K/uL Basophils # (Auto) 0.01 K/uL RDW Standard Deviation 45.4 fL RDW Coefficient of Variation 14.5 % Immature Granulocyte % (Auto) 0.3 % Immature Granulocyte # (Auto) 0.04 K/uL Toxic Granulation 2+ Toxic Vacuolation 1+ Dohle Bodies 1+ Sodium Level 138 mmol/L Potassium Level 3.6 mmol/L Chloride Level 101 mmol/L Carbon Dioxide Level 32 mmol/L Anion Gap 5.0 mmol/L Blood Urea Nitrogen 9 mg/dl Creatinine 0.67 mg/dl Est Creatinine Clear Calc Drug Dose 79.2 ml/min Estimated GFR () 104.7 Estimated GFR (Non- 90.3 BUN/Creatinine Ratio 13.5 Random Glucose 118 mg/dl Calcium Level 8.2 mg/dl Total Bilirubin 0.3 mg/dl Aspartate Amino Transf (AST/SGOT) 10 U/L Alanine Aminotransferase (ALT/SGPT) 11 U/L Alkaline Phosphatase 73 U/L Total Protein 5.8 gm/dl Albumin 1.6 gm/dl Globulin 4.2 gm/dl Albumin/Globulin Ratio 0.4 Vancomycin Level Trough 6.8 mcg/ml Test 05/09/17 11:27 Bedside Glucose 104 mg/dl Impression Patient is a 66 year old female recently s/p ex lap, sigmoidectomy, Dyana's procedure w end ostomy for perforated sigmoid diverticulitis. Hx of Crohn's disease, w hx of entero-enteric fistula, stricturing disease, active ileitis, L sided colon disease seen on last colonoscopy 03/2017. CMV, Cdiff negative. She is on Imuran, Sulfasalazine, Remicade, but felt that since over a month ago her symptoms aren't in great control. Having large amt of diarrhea, weight loss over 30 lbs. Plan - Hold Remicade & Imuran for at least 4 weeks. Ok to restart Sulfasalazine. - Agree with Cipro and Flagyl, but would recommend continuation of Flagyl for at least 4 weeks when we restart TNF. - Avoid steroids. - Will obtain Infliximab antibody titer and drug levels. Depending on results, may need to change med therapy. I will send a message to Dr. Ly as well about pt's recent admission and surgery. Will help arrange GI f/u after DC I performed a history and physical examination of the patient, including specifically on physical exam - abdomen is soft.I have discussed the patient's management with Kirti. Please refer to the ENTERTAINMENT USHER's note for the documented findings and plan of care. 66 years old with aggressive, severe Crohn's disease for long time with Hx of stricture and fistulas. Her disease was not well controlled hence was started on Remicade around a year ago and recently her dose increased to 10mg/kg as she never achieved remission. Colonoscopy 2 weeks ago showed the disease in TI and left sided colon. She is now admitted after a sigmoid colon perforation due to acute diverticulitis per the surgical report. She has colostomy now. She was on Prednisone prior to admission. Recommendations: Continue ABx as per ID. Hold Steroids as it will prevent wound healing and increase the risk of postoperative complications. 5-ASA is OK. DVT prophylaxis. Has to be started on Anti-TNF and immunosuppressives in 4 weeks post OP ( high risk patient). 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 Can continue Flagyl for 4 weeks till she starts back immunomodulators. Close follow up in GI clinic upon discharge.
[2017-05-09] MEDS ORDERED: SULFASALAZINE 500 MG TAB PO SCH (21:00)
[2017-05-09] MEDS ORDERED: ACETAMINOPHEN SOLN 650MG/20.3 ML UDC PO PRN (21:30)
[2017-05-09] MEDS: VANCOMYCIN INJ 1,250 MG in SODIUM CHLORIDE 0.9% 250ML 250 ML IV SCH (22:24)
[2017-05-10] VITALS (8 sets, daily range): BP systolic 123–160; BP diastolic 76–91; PULSE 90–107; TEMP 36.5–37.2; O2SAT 94
[2017-05-10 00:33] LABS: URINE APPEARANCE CLEAR (CLEAR); URINE BILIRUBIN NEG (NEG); URINE COLOR YELLOW; URINE EPITHELIAL CELL AUTO >30 /lpf (0-5); URINE NITRITE NEG (NEG); URINE SPECIFIC GRAVITY 1.016 (1.000-1.030); UROBILINOGEN NEG (NEG)
[2017-05-10 01:06] LABS: MANUAL MICROSCOPIC REQUIRED? NO; REVIEW REQ? NO
[2017-05-10] MEDS: METRONIDAZOLE / NSS 500 MG in PREMIXED NSS 100 ML IV SCH ×3 (04:08→20:35)
[2017-05-10] MEDS: METOPROLOL TARTRATE 1 MG/ML VIAL IV. SCH ×4 (04:17→22:09)
[2017-05-10] MEDS: CIPROFLOXACIN / D5W 400 MG in PREMIXED IN D5W 200 ML IV SCH ×2 (07:37→20:35)
[2017-05-10 09:11] LABS: HEMATOCRIT 27.2 % (37-47); MEAN CELL VOLUME 84.7 fL (80-100); MEAN CORPUSCULAR HEMOGLOBIN 25.5 pg (25-34); MEAN CORPUSCULAR HGB CONC 30.1 g/dl (32-36); MEAN PLATELET VOLUME 8.5 fL (7.4-10.4); PLATELET COUNT 324 K/uL (130-400); RED BLOOD COUNT 3.21 M/uL (4.2-5.4); WHITE BLOOD COUNT 7.12 K/uL (4.8-10.8)
[2017-05-10 09:52] LABS: CALCIUM 7.8 mg/dl (8.5-10.1); CREATININE 0.61 mg/dl (0.60-1.20); POTASSIUM 3.2 mmol/L (3.5-5.1)
--- NOTE | 2017-05-10 10:13 | Gastroenterology Progress Note ---
Progress Note Date of Service: May 10, 2017 Subjective Pt evaluation today including: conversation w/ patient, physical exam, chart review, lab review, review of inpatient medication list Pt reports less abd pain. Minimal HALLE output (30ml yesterday), NGT (140ml). She is not passing much liquids or air via ostomy. Not seen by Surgery yet. Review of Systems Constitutional: + fever Respiratory: No cough, No shortness of breath Cardiac: No chest pain Abdomen: + see HPI, + pain (improved), No nausea, No vomiting Medications Current Inpatient Medications Medications (Trade) Dose Ordered Sig/Rusty Route Start Time Stop Time Status Last Admin Dose Admin Ioversol (Optiray 320) 111 ml UD PRN IV 05/07/17 11:15 05/11/17 11:14 Ondansetron HCl (Zofran Inj) 4 mg Q4H PRN IV 05/07/17 14:30 06/06/17 14:29 05/09/17 20:31 4 MG Metronidazole 500 mg/Prmx 100 ml @ 100 mls/hr Q8H IV 05/07/17 20:00 05/17/17 19:59 05/10/17 04:08 100 MLS/HR Acetaminophen (Tylenol Tab) 650 mg Q6H PRN PO 05/07/17 17:30 06/06/17 17:29 Hydromorphone HCl (Dilaudid Inj) 1 mg Q3H PRN IV 05/07/17 17:30 05/21/17 17:29 05/09/17 05:19 1 MG Morphine Sulfate (MoRPHine SULFATE INJ) 3 mg Q3HWA PRN IV 05/07/17 17:30 05/21/17 17:29 Ciprofloxacin/ Dextrose 400 mg/ Prmx 200 ml @ 100 mls/hr Q12H IV 05/07/17 20:00 05/17/17 19:59 05/10/17 07:37 100 MLS/HR Vancomycin HCl (Consult) 1 ea UD PRN N/A 05/07/17 20:00 06/06/17 19:59 Metoprolol Tartrate (Lopressor Iv) 10 mg Q6H IV. 05/08/17 10:00 06/07/17 09:59 05/10/17 04:17 10 MG Potassium Chloride/Dextrose/ Sod Cl 1,000 ml @ 100 mls/hr Q10H IV 05/08/17 17:45 06/07/17 17:44 05/09/17 23:43 100 MLS/HR Pantoprazole Sodium 40 mg/ Syringe 10 ml @ 5 mls/min BID@0900,2100 IV 05/08/17 21:00 05/12/17 23:59 05/09/17 20:32 5 MLS/MIN Vancomycin HCl 1250 mg/Sodium Chloride 275 ml @ 125 mls/hr Q12H IV 05/09/17 22:00 05/18/17 00:00 05/09/17 22:24 125 MLS/HR Acetaminophen (Tylenol Soln) 650 mg Q6 PRN PO 05/09/17 21:30 06/08/17 21:29 05/09/17 22:25 650 MG Objective Vital Signs Date Time Temp Pulse Resp B/P (MAP) Pulse Ox O2 Delivery O2 Flow Rate FiO2 05/10/17 08:02 Room Air 05/10/17 06:50 36.8 104 17 135/79 (97) 94 Room Air 05/10/17 05:20 134/87 (103) 05/10/17 04:17 36.5 05/10/17 04:17 99 160/80 05/09/17 23:50 36.9 05/09/17 23:45 Room Air 05/09/17 23:00 37.7 97 16 128/79 (95) 95 Room Air 05/09/17 22:26 116 133/78 05/09/17 22:18 38.3 116 133/78 (96) 05/09/17 20:55 38.3 05/09/17 20:18 39.4 05/09/17 17:05 92 Room Air 05/09/17 16:33 109 133/71 05/09/17 16:28 109 133/71 (91) 05/09/17 15:40 113 134/79 (97) 92 Room Air 05/09/17 15:15 37.7 112 16 129/73 (91) 94 Room Air 05/09/17 12:48 38.4 107 20 127/77 (94) 94 Room Air 05/09/17 11:58 36.9 96 22 92 2.0 05/09/17 10:58 36.9 96 22 123/72 (89) 92 Room Air Physical Exam General Appearance: WD/WN, no apparent distress Eyes: normal inspection, PERRL, EOMI ENT: + pertinent finding (NGT in place, on suction) Neck: supple, no JVD, trachea midline Respiratory/Chest: normal breath sounds, no respiratory distress, no accessory muscle use Cardiovascular: regular rate, rhythm, no gallop, no murmur Abdomen: normal bowel sounds, soft, + tenderness (better then yesterday when palpated), + pertinent finding (Midline abd incision w fang, partly covered w dressing. HALLE drain w serosangenous fluid. LUQ ostomy pink, moist, deflated bag , no fluid/stool in bag. ) Extremities: normal inspection, no pedal edema, no calf tenderness Neurologic/Psych: alert, normal mood/affect, oriented x 3 Skin: normal color, no jaundice, no rash Laboratory Results Last 24 Hours Test 05/09/17 11:27 05/10/17 00:00 05/10/17 08:24 Bedside Glucose 104 mg/dl Urine Color YELLOW Urine Appearance CLEAR Urine pH 6.0 Urine Specific [place] 1.016 Urine Protein NEG Urine Glucose (UA) NEG Urine Ketones NEG Urine Occult Blood TRACE Urine Nitrite NEG Urine Bilirubin NEG Urine Urobilinogen NEG Urine Leukocyte Esterase MODERATE Urine WBC (Auto) 10-30 /hpf Urine RBC (Auto) 0-4 /hpf Urine Hyaline Casts (Auto) 1-5 /lpf Urine Epithelial Cells (Auto) >30 /lpf Urine Bacteria (Auto) NEG White Blood Count 7.12 K/uL Red Blood Count 3.21 M/uL Hemoglobin 8.2 g/dL Hematocrit 27.2 % Mean Corpuscular Volume 84.7 fL Mean Corpuscular Hemoglobin 25.5 pg Mean Corpuscular Hemoglobin Concent 30.1 g/dl RDW Standard Deviation 45.3 fL RDW Coefficient of Variation 14.5 % Platelet Count 324 K/uL Mean Platelet Volume 8.5 fL Sodium Level 136 mmol/L Potassium Level 3.2 mmol/L Chloride Level 102 mmol/L Carbon Dioxide Level 28 mmol/L Anion Gap 6.0 mmol/L Blood Urea Nitrogen 7 mg/dl Creatinine 0.61 mg/dl Est Creatinine Clear Calc Drug Dose 87.0 ml/min Estimated GFR () 108.0 Estimated GFR (Non- 93.1 BUN/Creatinine Ratio 12.0 Random Glucose 140 mg/dl Calcium Level 7.8 mg/dl Assessment and Plan Patient is a 66 year old female recently s/p ex lap, sigmoidectomy, Dyana's procedure w end ostomy for perforated sigmoid diverticulitis. Hx of Crohn's disease, w hx of entero-enteric fistula, stricturing disease, active ileitis, L sided colon disease seen on last colonoscopy 03/2017. CMV, Cdiff negative. She is on Imuran, Sulfasalazine, Remicade, but felt that since over a month ago her symptoms aren't in great control. Having large amt of diarrhea, weight loss over 30 lbs. Plans - Hold Remicade & Imuran for at least 4 weeks. Clarified w pt, she said no longer taking Sulfasalazine, thus will stop this. - Agree with Cipro and Flagyl, but would recommend continuation of Flagyl for at least 4 weeks when we restart TNF. - Avoid steroids. - Unable to obtain Infliximab antibody titer and drug levels while in-house. I have messaged Dr. Ly to obtain during her outpt f/u. Depending on results, may need to change med therapy if she develops antibodies or non responder to Remicade. Will help arrange GI f/u after DC - Obtain KUB today as BS present but no output from ostomy (gas/fluid). - Recommend Lovenox and SCDs for DVT prophylaxis. I performed a history and physical examination of the patient, including specifically on physical exam - abdomen is soft.I have discussed the patient's management with Kirti. Please refer to the BONE WORKER's note for the documented findings and plan of care. Clinically improving and NG was removed. Has bowel sounds. Would decrease the opioids to avoid ileus. Management of her Crohn's disease in GI clinic, will restart her therapy in 4 weeks. Please recall if any questions.
[2017-05-10] MEDS: VANCOMYCIN INJ 1,250 MG in SODIUM CHLORIDE 0.9% 250ML 250 ML IV SCH ×2 (10:18→22:07)
[2017-05-10] MEDS: PANTOprazole INJ 40 MG in SYRINGE 0 ML IV SCH ×2 (10:19→20:35)
[2017-05-10] MEDS: D5W AND 1/2NSS + 20MEQ KCL 1,000 ML IV SCH ×2 (10:19→22:27)
--- NOTE | 2017-05-10 11:01 | DIAGNOSTIC IMAGING REPORT ---
CASS CLINICAL HISTORY: s/p ostomy creation, eval for bowel obstruction/ileus. COMPARISON STUDY: CT of the abdomen and pelvis May 07, 2017. FINDINGS: A left lower quadrant ostomy is noted. Surgical drain is in place. There are surgical skin fang. The bowel gas pattern is normal. IMPRESSION: 1. No evidence for a bowel obstruction. Normal bowel gas pattern. 2. Left lower quadrant ostomy with surgical drain in place. Electronically signed by: Jose Carlos Valenzuela M.D. 05/10/2017 10:59 AM Dictated Date/Time: 05/10/2017 10:58 AM
[2017-05-10] MEDS ORDERED: BISACODYL 5 MG TABEC PO ONE (11:15)
[2017-05-10] MEDS: METOCLOPRAMIDE HCL INJ 5 MG/ML 2 ML VIAL IV SCH ×2 (12:55→20:35)
--- NOTE | 2017-05-10 14:41 | Discharge Instructions ---
Discharge Instructions Date of Service May 10, 2017. Admission Reason for Admission: Acute Sigmoid Colon Diverticulit With Perforation Discharge Discharge Diagnosis / Problem: same, Crohn's disease Discharge Goals Goal(s): Decrease discomfort, Improve function Activity Recommendations Activity Limitations: as noted below No heavy lifting over 10 pounds for 6 weeks No strenuous activity until cleared by surgeon No submerging incision underwater for 2 week (no bathing, swimming, or hot tubs) No driving while taking narcotic pain medication or until you are pain free . Instructions / Follow-Up Instructions / Follow-Up You may shower when you get home. Replace dressing on midline incision daily. Surgical fang will be removed in surgical office in 1 week You will have home health nursing to help with ostomy teaching and care Walking and light activity is encouraged You should follow-up with Dr. Ly in 1 week from discharge in regards to your Crohn's disease and further management - Hold Remicade & Imuran for at least 4 weeks. - Avoid steroids. (Prednisone) Recommend holding your full dose aspirin and to consult with your PCP in regards to maybe starting a baby aspirin (81mg) You will be given Narcotic pain medication (Percocet) as needed for moderate to severe pain. You may take extra strength Tylenol or Ibuprofen as needed for mild pain. You will be given oral antibiotics, please take complete course as prescribed. Follow-up in surgical office in 1 week, please call office at [phone] to make an appointment. You may need a nurse visit late next week for staple removal. Current Hospital Diet Patient's current hospital diet: Clear Liquid Diet Discharge Diet Recommended Diet: Regular Diet Procedures Procedures Performed: Exploratory Laparotomy, sigmoid resection and colostomy formation Pending Studies Studies pending at discharge: yes List of pending studies: Sigmoid colon resection pathology to be reviewed at follow up visit Medical Emergencies . Who to Call and When: Medical Emergencies: If at any time you feel your situation is an emergency, please call 911 immediately. . Non-Emergent Contact Non-Emergency issues call your: Primary Care Provider, Surgeon Call Non-Emergent contact if: you have a fever, temperature is above 101, your pain is not controlled, your pain is worsening, your pain is unusual for you, wound has increased drainage, wound has increased redness, wound has increased pain . "Provider Documentation" section prepared by Irena Bernard. . VTE Core Measure Inpt VTE Proph given/why not?: SCD's [place] Drug Monitoring Program Search Results: patient reviewed within database, no issues identified
[2017-05-10] MEDS ORDERED: OXYC-57 PO (14:42)
[2017-05-10] MEDS ORDERED: CIPR-255 PO (14:46)
[2017-05-10] MEDS ORDERED: METR500T PO (14:48)
--- NOTE | 2017-05-10 15:22 | Surgery Progress Note ---
Surgery Progress Note Date of Service May 10, 2017. Subjective Post OP Day: 3 (s/p ex lap, sigmoidectomy with end colostomy) + feeling well, + pain controlled, No complaints, No chest pain, No SOB, No bowel movement, No flatus, No nausea, No vomiting would really like something to drink Would really like to go home soon Objective Vital Signs: Date Time Temp Pulse Resp B/P (MAP) Pulse Ox O2 Delivery O2 Flow Rate FiO2 05/10/17 11:13 104 135/79 05/10/17 08:02 Room Air 05/10/17 06:50 36.8 104 17 135/79 (97) 94 Room Air 05/10/17 05:20 134/87 (103) 05/10/17 04:17 36.5 05/10/17 04:17 99 160/80 05/09/17 23:50 36.9 05/09/17 23:45 Room Air 05/09/17 23:00 37.7 97 16 128/79 (95) 95 Room Air 05/09/17 22:26 116 133/78 05/09/17 22:18 38.3 116 133/78 (96) 05/09/17 20:55 38.3 05/09/17 20:18 39.4 05/09/17 17:05 92 Room Air 05/09/17 16:33 109 133/71 05/09/17 16:28 109 133/71 (91) 05/09/17 15:40 113 134/79 (97) 92 Room Air Physical Exam: HALLE drainage (serous ), nasogastric drainage (minimal bilious dark brown output) General Appearance: WD/WN, no apparent distress Head: normocephalic, atraumatic Neck: trachea midline Respiratory/Chest: no respiratory distress, no accessory muscle use Abdomen: non distended, soft, no organomegaly, no pulsatile mass, + tenderness (minimal at incision site), + pertinent finding (ostomy present in LLQ, pink, no gas or stool in bag) Incision(s): clean, dry, intact, no erythema, no drainage, findings (fang present and intact) Laboratory Results: Results Past 24 Hours Test 05/10/17 00:00 05/10/17 08:24 Range/Units Urine Color YELLOW Urine Appearance CLEAR CLEAR Urine pH 6.0 4.5-7.5 Urine Specific [place] 1.016 1.000-1.030 Urine Protein NEG NEG Urine Glucose (UA) NEG NEG Urine Ketones NEG NEG Urine Occult Blood TRACE NEG Urine Nitrite NEG NEG Urine Bilirubin NEG NEG Urine Urobilinogen NEG NEG Urine Leukocyte Esterase MODERATE NEG Urine WBC (Auto) 10-30 0-5 /hpf Urine RBC (Auto) 0-4 0-4 /hpf Urine Hyaline Casts (Auto) 1-5 0-5 /lpf Urine Epithelial Cells (Auto) >30 0-5 /lpf Urine Bacteria (Auto) NEG NEG White Blood Count 7.12 4.8-10.8 K/uL Red Blood Count 3.21 4.2-5.4 M/uL Hemoglobin 8.2 12.0-16.0 g/dL Hematocrit 27.2 37-47 % Mean Corpuscular Volume 84.7 80-100 fL Mean Corpuscular Hemoglobin 25.5 25-34 pg Mean Corpuscular Hemoglobin Concent 30.1 32-36 g/dl RDW Standard Deviation 45.3 36.4-46.3 fL RDW Coefficient of Variation 14.5 11.5-14.5 % Platelet Count 324 130-400 K/uL Mean Platelet Volume 8.5 7.4-10.4 fL Sodium Level 136 136-145 mmol/L Potassium Level 3.2 3.5-5.1 mmol/L Chloride Level 102 98-107 mmol/L Carbon Dioxide Level 28 21-32 mmol/L Anion Gap 6.0 3-11 mmol/L Blood Urea Nitrogen 7 7-18 mg/dl Creatinine 0.61 0.60-1.20 mg/dl Est Creatinine Clear Calc Drug Dose 87.0 ml/min Estimated GFR () 108.0 Estimated GFR (Non- 93.1 BUN/Creatinine Ratio 12.0 10-20 Random Glucose 140 70-99 mg/dl Calcium Level 7.8 8.5-10.1 mg/dl Diagnostic Interpretation: KUB CLINICAL HISTORY: s/p ostomy creation, eval for bowel obstruction/ileus. COMPARISON STUDY: CT of the abdomen and pelvis May 07, 2017. FINDINGS: A left lower quadrant ostomy is noted. Surgical drain is in place. There are surgical skin fang. The bowel gas pattern is normal. IMPRESSION: 1. No evidence for a bowel obstruction. Normal bowel gas pattern. 2. Left lower quadrant ostomy with surgical drain in place. Assessment & Plan POD # 3 s/p exploratory laparotomy , sigmoidectomy, Bethea's Procedure with end colostomy - vitals stable, febrile yesterday T max 39.4, intermittent tachycardia - H&H 8.2/27.2 , asymptomatic, most likely dilutional - abdominal pain controlled, minimal - 50 mls NGT output yesterday in 24 hours, 140 last shift - adequate urine output - leukocytosis resolved - KUB showing no signs of bowel obstruction, normal bowel gas pattern Plan: Continue IV Dilaudid as needed for pain control will add PO Percocet now that she is taking clear liquids Continue to encourage incentive spirometry, keep O2 sats > 92% Continue Iv fluids at 100 mls/hr until taking PO well Continue IV antibiotics, appreciate ID input, will need to switch to oral Cipro/ Flagyl once taking PO well, total course of 2-3 weeks GI Consultations for management of Crohn's disease, appreciate recs hold steroids, Imuran Appreciate ID recs: Cipro/flagyl for total of 2-3 weeks, switch to PO when taking PO well Discontinue NGT, start clear liquids Continue HALLE drain to bulb suction Continue SCDs, hold Lovenox given low H&H encourage OOB to chair repeat am labs start PO Dulcolax Reglan 10 mg IV q 8 hours await return of bowel function Dr. Humphreys has seen and examined patient, agrees with above
[2017-05-10] MEDS ORDERED: OXYCODONE/ACETAMINOPHEN 5-325 TAB PO PRN ×2 (15:30)
[2017-05-11] MEDS: D5W AND 1/2NSS + 20MEQ KCL 1,000 ML IV SCH (01:18)
[2017-05-11 04:04] VITALS: BP 124/76; PULSE 90
[2017-05-11] MEDS: METRONIDAZOLE / NSS 500 MG in PREMIXED NSS 100 ML IV SCH ×2 (04:06→12:54)
[2017-05-11] MEDS: METOPROLOL TARTRATE 1 MG/ML VIAL IV. SCH ×2 (04:07→10:43)
[2017-05-11] MEDS: METOCLOPRAMIDE HCL INJ 5 MG/ML 2 ML VIAL IV SCH ×2 (04:08→12:54)
[2017-05-11 06:49] VITALS: BP 133/82; PULSE 92; TEMP 36.5; O2SAT 94
[2017-05-11] MEDS ORDERED: VANCOMYCIN TROUGH ONE (09:30)
[2017-05-11 10:05] LABS: HEMATOCRIT 28.5 % (37-47); MEAN CELL VOLUME 84.1 fL (80-100); MEAN CORPUSCULAR HGB CONC 30.9 g/dl (32-36); MEAN PLATELET VOLUME 8.3 fL (7.4-10.4); PLATELET COUNT 339 K/uL (130-400); RED BLOOD COUNT 3.39 M/uL (4.2-5.4); WHITE BLOOD COUNT 7.26 K/uL (4.8-10.8)
[2017-05-11 10:21] LABS: CALCIUM 7.9 mg/dl (8.5-10.1); CREATININE 0.75 mg/dl (0.60-1.20); POTASSIUM 2.9 mmol/L (3.5-5.1)
[2017-05-11] MEDS: CIPROFLOXACIN / D5W 400 MG in PREMIXED IN D5W 200 ML IV SCH (10:40)
[2017-05-11] MEDS: PANTOprazole INJ 40 MG in SYRINGE 0 ML IV SCH (10:40)
[2017-05-11] MEDS ORDERED: POTASSIUM CHLORIDE 10 MEQ TABCR PO ONE ×2 (11:30→14:30)
--- NOTE | 2017-05-11 13:19 | Surgery Progress Note ---
Surgery Progress Note Date of Service May 11, 2017. Subjective Post OP Day: 4 + feeling well pt is doing fine, no abdominal pain, colostomy working well, passed gas and stool, Objective Vital Signs: Date Time Temp Pulse Resp B/P (MAP) Pulse Ox O2 Delivery O2 Flow Rate FiO2 05/11/17 10:43 92 144/83 05/11/17 06:49 36.5 92 16 133/82 (99) 94 Room Air 05/11/17 04:07 90 124/76 05/11/17 04:04 90 124/76 (92) 05/10/17 23:25 Room Air 05/10/17 22:52 37.0 91 16 123/76 (92) 94 Room Air 05/10/17 22:23 90 130/84 (99) 05/10/17 22:09 107 160/91 (114) 05/10/17 22:09 107 160/91 05/10/17 15:53 90 131/82 (98) 05/10/17 15:47 101 144/82 05/10/17 15:30 37.2 107 16 144/82 (102) 94 Room Air 05/10/17 15:30 Room Air General Appearance: WD/WN Head: normocephalic Neck: supple, no JVD Respiratory/Chest: chest non-tender, lungs clear, normal breath sounds Cardiovascular: regular rate, rhythm, no edema, no gallop, no JVD, no murmur Abdomen: normal bowel sounds, non tender, non distended, soft, no organomegaly Incision(s): clean, dry, intact Extremities: normal range of motion, non-tender, normal inspection Laboratory Results: Results Past 24 Hours Test 05/11/17 09:40 Range/Units White Blood Count 7.26 4.8-10.8 K/uL Red Blood Count 3.39 4.2-5.4 M/uL Hemoglobin 8.8 12.0-16.0 g/dL Hematocrit 28.5 37-47 % Mean Corpuscular Volume 84.1 80-100 fL Mean Corpuscular Hemoglobin 26.0 25-34 pg Mean Corpuscular Hemoglobin Concent 30.9 32-36 g/dl RDW Standard Deviation 44.4 36.4-46.3 fL RDW Coefficient of Variation 14.4 11.5-14.5 % Platelet Count 339 130-400 K/uL Mean Platelet Volume 8.3 7.4-10.4 fL Sodium Level 137 136-145 mmol/L Potassium Level 2.9 3.5-5.1 mmol/L Chloride Level 102 98-107 mmol/L Carbon Dioxide Level 28 21-32 mmol/L Anion Gap 6.0 3-11 mmol/L Blood Urea Nitrogen 5 7-18 mg/dl Creatinine 0.75 0.60-1.20 mg/dl Est Creatinine Clear Calc Drug Dose 70.7 ml/min Estimated GFR () 94.9 Estimated GFR (Non- 81.9 BUN/Creatinine Ratio 6.0 10-20 Random Glucose 180 70-99 mg/dl Calcium Level 7.9 8.5-10.1 mg/dl Vancomycin Level Trough 14.4 SEE COMMENT mcg/ml Assessment & Plan S/P exp lap, anjana procedure for sigmoid colon perforation, POD 4 pt is doing fine, pt wants to go home today, I gave pt post-op care instruction, F/U 1 week,
--- NOTE | 2017-05-11 14:55 | DISCHARGE SUMMARY ---
DATE OF DISCHARGE: 05/11/2017 ADMITTING DIAGNOSIS: Acute diverticulitis with sigmoid colon perforation. DISCHARGE DIAGNOSIS: Same. OPERATION: Exploratory laparotomy, Bethea procedure, sigmoid colon resection, colostomy. SURGEON: Dr. Erica Humphreys. DETAILS OF DISCHARGE SUMMARY: This is a 66-year-old female who presented with acute abdominal pain. The patient had a CT scan diagnosis of acute sigmoid colon diverticulitis with sigmoid colon perforation. The patient had a long history of Crohn's disease. We took the patient to the OR. We did exploratory laparotomy, resection sigmoid colon, colostomy and after the procedure the patient back to the ICU for 1 day and followed day the patient doing fine, transferred to regular floor, the patient doing fine and yesterday the patient started passing gas and passed stool through the colostomy bag and the patient no significant abdominal pain. PHYSICAL EXAMINATION: VITAL SIGNS: Today, her temperature is 36.5, heart rate 92, respiratory rate is 16, blood pressure 144/83, O2 saturation 94%. GENERAL: The patient is alert, awake, oriented x3. No distress. HEAD, EYES, EARS, NOSE, AND THROAT: With normal limitation. NEUROLOGIC EXAMINATION: Intact. NECK: No JVD. CHEST: Bilateral lung sounds clear. HEART: Normal S1, S2. No murmur. ABDOMEN: Soft, no tenderness. Bowel sounds positive. The colostomy working very well and colostomy pink, good blood circulation. All incisions intact and the patient's HALLE put out only 10 mL overnight. I removed the HALLE this morning. The patient tolerated well. Then we put the new dressing on. EXTREMITIES: No edema. PLAN: The patient wanted to go home today and I also gave patient the postop care instructions. The patient understands. I will follow up the patient in 1 week in my office.
--- NOTE | 2017-05-11 14:56 | Infectious Disease Progress Nt ---
Progress Note Date of Service May 11, 2017. Subjective Pt evaluation today including: conversation w/ patient, physical exam, chart review, lab review, review of studies, conversation w/ employee relations consultant, review of inpatient medication list Patient offering no new complaints today. Remains afebrile. For discharge. All Other Systems: Reviewed and Negative Medications Current Inpatient Medications Medications (Trade) Dose Ordered Sig/Rusty Route Start Time Stop Time Status Last Admin Dose Admin Ondansetron HCl (Zofran Inj) 4 mg Q4H PRN IV 05/07/17 14:30 06/06/17 14:29 05/09/17 20:31 4 MG Metronidazole 500 mg/Prmx 100 ml @ 100 mls/hr Q8H IV 05/07/17 20:00 05/17/17 19:59 05/11/17 12:54 100 MLS/HR Acetaminophen (Tylenol Tab) 650 mg Q6H PRN PO 05/07/17 17:30 06/06/17 17:29 Hydromorphone HCl (Dilaudid Inj) 1 mg Q3H PRN IV 05/07/17 17:30 05/21/17 17:29 05/09/17 05:19 1 MG Morphine Sulfate (MoRPHine SULFATE INJ) 3 mg Q3HWA PRN IV 05/07/17 17:30 05/21/17 17:29 Ciprofloxacin/ Dextrose 400 mg/ Prmx 200 ml @ 100 mls/hr Q12H IV 05/07/17 20:00 05/17/17 19:59 05/11/17 10:40 100 MLS/HR Metoprolol Tartrate (Lopressor Iv) 10 mg Q6H IV. 05/08/17 10:00 06/07/17 09:59 05/11/17 10:43 10 MG Potassium Chloride/Dextrose/ Sod Cl 1,000 ml @ 100 mls/hr Q10H IV 05/08/17 17:45 06/07/17 17:44 05/11/17 01:18 100 MLS/HR Pantoprazole Sodium 40 mg/ Syringe 10 ml @ 5 mls/min BID@0900,2100 IV 05/08/17 21:00 05/12/17 23:59 05/11/17 10:40 5 MLS/MIN Acetaminophen (Tylenol Soln) 650 mg Q6 PRN PO 05/09/17 21:30 06/08/17 21:29 05/09/17 22:25 650 MG Metoclopramide HCl (Reglan Inj) 10 mg Q8H IV 05/10/17 12:00 06/09/17 11:59 05/11/17 12:54 10 MG Oxycodone/ Acetaminophen (Percocet 5-325mg Tab) 1 tab Q4H PRN PO 05/10/17 15:30 05/24/17 15:29 Oxycodone/ Acetaminophen (Percocet 5-325mg Tab) 2 tab Q4H PRN PO 05/10/17 15:30 05/24/17 15:29 Objective Vital Signs Date Time Temp Pulse Resp B/P (MAP) Pulse Ox O2 Delivery O2 Flow Rate FiO2 05/11/17 10:43 92 144/83 05/11/17 07:30 Room Air 05/11/17 06:49 36.5 92 16 133/82 (99) 94 Room Air 05/11/17 04:07 90 124/76 05/11/17 04:04 90 124/76 (92) 05/10/17 23:25 Room Air 05/10/17 22:52 37.0 91 16 123/76 (92) 94 Room Air 05/10/17 22:23 90 130/84 (99) 05/10/17 22:09 107 160/91 (114) 05/10/17 22:09 107 160/91 05/10/17 15:53 90 131/82 (98) 05/10/17 15:47 101 144/82 05/10/17 15:30 37.2 107 16 144/82 (102) 94 Room Air 05/10/17 15:30 Room Air Physical Exam General Appearance: WD/WN, no apparent distress Eyes: normal inspection, sclerae normal ENT: normal ENT inspection, pharynx normal Neck: supple, no adenopathy, trachea midline Respiratory/Chest: lungs clear, normal breath sounds, no respiratory distress Cardiovascular: regular rate, rhythm, no gallop, no murmur Abdomen: normal bowel sounds, non tender, soft, no organomegaly, + pertinent finding (Ostomy functioning ) Extremities: non-tender (The), no calf tenderness Neurologic/Psychiatric: alert, oriented x 3 (Review my) Skin: normal color, warm/dry, no rash Lymphatic: no adenopathy Laboratory Results Last 24 Hours Test 05/11/17 09:40 White Blood Count 7.26 K/uL Red Blood Count 3.39 M/uL Hemoglobin 8.8 g/dL Hematocrit 28.5 % Mean Corpuscular Volume 84.1 fL Mean Corpuscular Hemoglobin 26.0 pg Mean Corpuscular Hemoglobin Concent 30.9 g/dl RDW Standard Deviation 44.4 fL RDW Coefficient of Variation 14.4 % Platelet Count 339 K/uL Mean Platelet Volume 8.3 fL Sodium Level 137 mmol/L Potassium Level 2.9 mmol/L Chloride Level 102 mmol/L Carbon Dioxide Level 28 mmol/L Anion Gap 6.0 mmol/L Blood Urea Nitrogen 5 mg/dl Creatinine 0.75 mg/dl Est Creatinine Clear Calc Drug Dose 70.7 ml/min Estimated GFR () 94.9 Estimated GFR (Non- 81.9 BUN/Creatinine Ratio 6.0 Random Glucose 180 mg/dl Calcium Level 7.9 mg/dl Vancomycin Level Trough 14.4 mcg/ml Assessment and Plan (1) Sepsis Status: Acute (2) Abdominal pain Status: Resolved (3) Crohns disease Status: Chronic (4) acute sigmoid colon diverticulit with perforation Perforated sigmoid diverticulitis with abscess with positive culture for E. coli and Bacteroides . Patient will be continued on ciprofloxacin and metronidazole after discharge to complete 3 weeks of therapy.
[2017-05-11 15:08] VITALS: BP 138/84; PULSE 88; TEMP 36.6; O2SAT 94
[2017-05-11 16:46] VITALS: BP 138/84; PULSE 88; TEMP 36.6; O2SAT 94
== END 2017-05-11 17:25 | disposition home health service (06) | DRG 854 ==
LOC: C.EDB 08:55 → C.MSICU 17:37 → CANBEDREQ 18:01 → ENRESERV 18:18 → CANBEDREQ 05-08 20:10 → C.2T 05-08 20:58 → ENRESERV 05-08 20:58 → C.MSW 05-09 12:26
PROVIDERS: ADMIT Surgery; ATTEND Surgery
PROC: 0D1N0Z4 Bypass Sigmoid Colon to Cutaneous, Open Approach (ICD-10-PCS; principal; 2017-05-07 14:15)
PROC: 0DBN0ZZ Excision of Sigmoid Colon, Open Approach (ICD-10-PCS; principal; 2017-05-07 14:15)
DX: A41.9 Sepsis, unspecified organism (principal); K57.20 Diverticulitis of large intestine with perforation and abscess without bleeding; K50.918 Crohn's disease, unspecified, with other complication; Z87.891 Personal history of nicotine dependence; Z79.82 Long term (current) use of aspirin; Z79.52 Long term (current) use of systemic steroids; Z79.899 Other long term (current) drug therapy